=== PATIENT | female | born 1955 | race Caucasian/White ===

== ENCOUNTER 2020-08-02 17:06 | Inpatient (IN) ==
[~2020-08-02 17:06] MED LIST: *HR* Midazolam HCl 5 MG/5 ML VIAL IVP ONE; *HR* Propofol 200 MG/20 ML VIAL IVP ONE; *HR* Succinylcholine 200 MG/10 ML VIAL IVP ONE
[2020-08-02] MEDS ORDERED: Racepinephrine Neb 0.5 ML VIAL IH ONE (17:20)
[2020-08-02] MEDS ORDERED: methylPREDNISolone 125 MG/2 ML VIAL ONE (17:26)
[2020-08-02] MEDS ORDERED: Ketamine *HR* 500 MG/10 ML MDV ONE (17:29)
[2020-08-02] MEDS ORDERED: Oxymetazoline Nasal SPRAY BOTTLE NS STA (17:31)
[2020-08-02] MEDS ORDERED: Ketamine *HR* 500 MG/10 ML MDV IVP ONE (17:35)
[2020-08-02 17:53] LABS: Basophils # 0.1 K/mcL (0.0-0.2); Eosinophils # 0.2 K/mcL (0.0-0.6); Eosinophils % 1.8 %; Hematocrit 42.2 % (35.3-44.9); Hemoglobin 14.2 g/dL (11.5-15.4); Immature Granulocytes % 0.2 % (0-4); Lymphocytes # 1.9 K/mcL (0.6-4.6); Mean Corpuscular HGB Conc 33.6 g/dL (31.6-35.5); Mean Corpuscular Hemoglobin 34.5 pg (28.0-33.3); Mean Corpuscular Volume 102.7 fL (83.0-100.0); Mean Platelet Volume 11.1 fL (9.4-12.4); Monocytes # 0.9 K/mcL (0.0-1.3); Monocytes % 9.2 %; Neutrophils # 6.3 K/mcL (1.6-8.9); Platelet Count 215 K/mcL (140-400); Red Blood Count 4.11 M/mcL (3.82-4.97); Red Cell Distribution Width 14.2 % (11.5-14.5); Segmented Neutrophils % 67.8 %; White Blood Count 9.2 K/mcL (4.3-11.1)
[2020-08-02] MEDS ORDERED: 0.9 % Sodium Chloride 1,000 ML IVC ONE ×2 (17:53→23:09)
[2020-08-02] MEDS ORDERED: 0.9 % Sodium Chloride 1,000 ML ONE ×2 (17:54→22:59)
[2020-08-02] MEDS ORDERED: *HR* FentaNYL (PF) 1,000 MCG/20 ML VIAL ONE (17:57)
[2020-08-02 18:03] LABS: INR 1.1; Prothrombin Time 12.4 Seconds (9.4-12.1)
[2020-08-02 18:06] LABS: Activated Partial Thrombo Time 28.5 Seconds (26.0-36.0)
[2020-08-02 18:12] LABS: BUN/Creatinine Ratio 13 (6-26); Blood Urea Nitrogen 20 mg/dL (8-23); Calcium 9.3 mg/dL (8.6-10.3); Carbon Dioxide 27 mEq/L (23-29); Chloride 94 mEq/L (98-107); Glucose 121 mg/dL (70-105); Osmolality,Calculated 272 (280-300); Potassium 4.1 mEq/L (3.5-5.1); Sodium 129 mEq/L (136-145); eGFR For African Americans 40 (> 60); eGFR For Non-African Americans 33 (> 60)
[2020-08-02 18:13] LABS: Troponin I < 0.03 ng/mL (< 0.04)
[2020-08-02 18:18] LABS: ABG Base Excess -3 mEq/L (-2 to 3); ABG HCO3 26 mEq/L (21-27); ABG Oxygen Saturation 100 % (95-98); ABG PCO2 63 mmHg (35-45); ABG PH 7.23 pH Units (7.32-7.45); ABG PO2 272 mmHg (85-104); ABG TCO2 28 mEq/L (20-26); Blood Gas Modality ASSIST CONTROL; Blood Gas VT 400 cc
[2020-08-02] MEDS: FentaNYL (PF) 1,000 MCG/100 ML IV.SOLN IVC SCH ×2 (18:21→22:21)
[2020-08-02] MEDS ORDERED: *HR* Midazolam HCl 2 MG/2 ML VIAL IVP ONE (18:35)
[2020-08-02] MEDS ORDERED: Naloxone 0.4 MG/ML INJ IVP PRN (18:39)
[2020-08-02] MEDS ORDERED: Acetaminophen 650 MG RECTAL SUPP RC PRN (18:39)
[2020-08-02] MEDS ORDERED: Artificial Tears SOLN 15 ML BOTTLE BOTH EYES PRN (18:43)
[2020-08-02] MEDS: Midazolam HCl 50 MG/100 ML IV.SOLN IVC SCH (20:10)
[2020-08-02 21:07] LABS: ABG Base Excess -1 mEq/L (-2 to 3); ABG HCO3 27 mEq/L (21-27); ABG Oxygen Saturation 100 % (95-98); ABG PCO2 60 mmHg (35-45); ABG PH 7.27 pH Units (7.32-7.45); ABG PO2 193 mmHg (85-104); ABG TCO2 29 mEq/L (20-26); Blood Gas Modality ASSIST CONTROL; Blood Gas VT 500 cc
[2020-08-02] MEDS: Chlorhexidine Rinse 15 ML MOUTHWASH MM SCH (21:14)
[2020-08-02] MEDS: Artificial Tears SOLN 15 ML BOTTLE BOTH EYES SCH ×2 (21:14→23:08)
[2020-08-02] MEDS: Oxymetazoline Nasal SPRAY BOTTLE NS SCH (21:15)
[2020-08-02] MEDS: MethylPREDNISolone 40 MG/ML VIAL IVP SCH (23:01)
[2020-08-02] MEDS ORDERED: Magnesium Sulfate 1 GM/102 ML PIGGYBACK IVPB ONE (23:31)
[2020-08-03 04:18] LABS: ABG Base Excess -2 mEq/L (-2 to 3); ABG HCO3 24 mEq/L (21-27); ABG Oxygen Saturation 98 % (95-98); ABG PCO2 47 mmHg (35-45); ABG PH 7.32 pH Units (7.32-7.45); ABG PO2 116 mmHg (85-104); ABG TCO2 26 mEq/L (20-26); Blood Gas Modality ASSIST CONTROL; Blood Gas VT 450 cc
[2020-08-03] MEDS: Artificial Tears SOLN 15 ML BOTTLE BOTH EYES SCH ×6 (04:23→23:54)
[2020-08-03 05:55] LABS: Hematocrit 35.2 % (35.3-44.9); Hemoglobin 11.5 g/dL (11.5-15.4); Mean Corpuscular HGB Conc 32.7 g/dL (31.6-35.5); Mean Corpuscular Hemoglobin 33.3 pg (28.0-33.3); Platelet Count 181 K/mcL (140-400); Red Blood Count 3.45 M/mcL (3.82-4.97); Red Cell Distribution Width 14.2 % (11.5-14.5); White Blood Count 5.3 K/mcL (4.3-11.1)
[2020-08-03 05:59] LABS: VBG Ionized Calcium 1.21 mmol/L (1.15-1.35)
[2020-08-03] MEDS ORDERED: Famotidine 20 MG/2 ML VIAL IVP SCH (06:00)
[2020-08-03] MEDS: Oxymetazoline Nasal SPRAY BOTTLE NS SCH ×2 (06:14→17:12)
[2020-08-03 06:17] LABS: Phosphorous 2.8 mg/dL (2.7-4.5); Potassium 4.8 mEq/L (3.5-5.1)
[2020-08-03] MEDS: FentaNYL (PF) 1,000 MCG/100 ML IV.SOLN IVC SCH ×2 (06:48→13:35)
[2020-08-03] MEDS: MethylPREDNISolone 40 MG/ML VIAL IVP SCH ×3 (07:57→23:54)
[2020-08-03] MEDS: Chlorhexidine Rinse 15 ML MOUTHWASH MM SCH ×2 (08:13→20:10)
[2020-08-03] MEDS: Budesonide/Formoterol 160/4.5 1 PUFF INH IH SCH ×2 (11:25→20:03)
[2020-08-03] MEDS ORDERED: Ringers Solution, Lactated 500 ML IVC ONE (12:26)
[2020-08-03 12:37] LABS: Adenovirus Not Detected (Not Detect); Bordetella Pertussis Not Detected (Not Detect); Chlamydophila pneumoniae Not Detected (Not Detect); Coronavirus 229E Not Detected (Not Detect); Coronavirus HKU1 Not Detected (Not Detect); Coronavirus NL63 Not Detected (Not Detect); Coronavirus OC43 Not Detected (Not Detect); Human Metapneumovirus Not Detected (Not Detect); Human Rhinovirus/Enterovirus Not Detected (Not Detect); Influenza A Subtype 2009 H1 Not Detected (Not Detect); Influenza B Not Detected (Not Detect); Mycoplasma pneumoniae Not Detected (Not Detect); Parainfluenza Virus 1 Not Detected (Not Detect); Parainfluenza Virus 2 Not Detected (Not Detect); Parainfluenza Virus 3 Not Detected (Not Detect); Parainfluenza Virus 4 Not Detected (Not Detect); Respiratory Syncytial Virus Not Detected (Not Detect); SARS-CoV-2 Not Detected (Not Detect)
[2020-08-03] MEDS: *HR* Heparin 5,000 UNIT/ML VIAL SQ SCH ×2 (12:56→21:16)
[2020-08-03] MEDS: Midazolam HCl 50 MG/100 ML IV.SOLN IVC SCH ×2 (15:07→21:03)
[2020-08-03] MEDS: FentaNYL (PF) 2,500 MCG/50 ML IV.SOLN IVC SCH (19:15)
[2020-08-04] MEDS: Midazolam HCl 50 MG/100 ML IV.SOLN IVC SCH ×3 (02:44→18:38)
[2020-08-04] MEDS: FentaNYL (PF) 2,500 MCG/50 ML IV.SOLN IVC SCH ×2 (02:44→15:47)
[2020-08-04] MEDS: Artificial Tears SOLN 15 ML BOTTLE BOTH EYES SCH ×6 (03:28→23:54)
[2020-08-04 04:50] LABS: ABG Base Excess -4 mEq/L (-2 to 3); ABG HCO3 22 mEq/L (21-27); ABG Oxygen Saturation 91 % (95-98); ABG PCO2 44 mmHg (35-45); ABG PH 7.32 pH Units (7.32-7.45); ABG PO2 66 mmHg (85-104); ABG TCO2 24 mEq/L (20-26); Blood Gas Modality ASSIST CONTROL; Blood Gas VT 450 cc
[2020-08-04 05:29] LABS: Calcium 8.8 mg/dL (8.6-10.3); Potassium 5.2 mEq/L (3.5-5.1)
[2020-08-04] MEDS: *HR* Heparin 5,000 UNIT/ML VIAL SQ SCH ×3 (05:44→20:28)
[2020-08-04] MEDS: Oxymetazoline Nasal SPRAY BOTTLE NS SCH ×2 (05:44→17:20)
[2020-08-04 06:44] LABS: Basophils % 0.1 %; Hemoglobin 11.9 g/dL (11.5-15.4); Immature Granulocytes % 0.8 % (0-4); Lymphocytes # 0.7 K/mcL (0.6-4.6); Lymphocytes % 4.5 %; Mean Corpuscular HGB Conc 33.1 g/dL (31.6-35.5); Mean Corpuscular Hemoglobin 35.1 pg (28.0-33.3); Mean Corpuscular Volume 106.2 fL (83.0-100.0); Mean Platelet Volume 11.4 fL (9.4-12.4); Monocytes # 0.9 K/mcL (0.0-1.3); Monocytes % 5.6 %; Neutrophils # 13.8 K/mcL (1.6-8.9); Platelet Count 193 K/mcL (140-400); Red Blood Count 3.39 M/mcL (3.82-4.97); Red Cell Distribution Width 14.7 % (11.5-14.5); White Blood Count 15.5 K/mcL (4.3-11.1)
[2020-08-04] MEDS: Famotidine 20 MG/2 ML VIAL IVP SCH (07:37)
[2020-08-04] MEDS: Chlorhexidine Rinse 15 ML MOUTHWASH MM SCH ×2 (07:37→20:28)
[2020-08-04] MEDS: MethylPREDNISolone 40 MG/ML VIAL IVP SCH ×3 (07:38→23:55)
[2020-08-04] MEDS: Budesonide/Formoterol 160/4.5 1 PUFF INH IH SCH ×2 (07:42→21:33)
[2020-08-04] MEDS ORDERED: Furosemide 20 MG/2 ML VIAL IVP ONE (09:58)
[2020-08-04] MEDS ORDERED: D5% in Water 1,000 ML IVC PRN (12:18)
[2020-08-04] MEDS ORDERED: Dextrose Gel 15 GM/37.5 ML TUBE PO PRN ×2 (12:18)
[2020-08-04] MEDS ORDERED: *HR* Dextrose 50 % in Water (Vial) 50 ML VIAL IVP PRN (12:18)
[2020-08-04 15:00] LABS: Calcium 9.2 mg/dL (8.6-10.3); Potassium 5.3 mEq/L (3.5-5.1)
[2020-08-04] MEDS ORDERED: Albumin 25% 25gram/100mL 25 GM/100 ML IV.SOLN IVPB ONE ×2 (15:11→18:32)
[2020-08-04] MEDS ORDERED: Ringers Solution, Lactated 500 ML IVC ONE (15:25)
[2020-08-04] MEDS ORDERED: Ringers Solution, Lactated 1,000 ML ONE (15:30)
[2020-08-04] MEDS: Ringers Solution, Lactated 1,000 ML IVC SCH (15:37)
[2020-08-04] MEDS: Insulin LISPRO 300 UNITS/3 ML VIAL SUBQ SCH ×3 (15:53→23:55)
[2020-08-04] MEDS ORDERED: Perflutren Lipid Microsphere 1.3 ML in 0.9 % Sodium Chloride 8.7 ML IVP PRN (16:26)
[2020-08-04 17:32] LABS: Basophils % 0.1 %; Hematocrit 32.7 % (35.3-44.9); Hemoglobin 10.7 g/dL (11.5-15.4); Immature Granulocytes % 0.6 % (0-4); Lymphocytes # 0.5 K/mcL (0.6-4.6); Lymphocytes % 3.3 %; Mean Corpuscular HGB Conc 32.7 g/dL (31.6-35.5); Mean Corpuscular Hemoglobin 35.4 pg (28.0-33.3); Mean Corpuscular Volume 108.3 fL (83.0-100.0); Mean Platelet Volume 11.4 fL (9.4-12.4); Monocytes # 0.8 K/mcL (0.0-1.3); Monocytes % 5.3 %; Neutrophils # 14.1 K/mcL (1.6-8.9); Platelet Count 185 K/mcL (140-400); Red Blood Count 3.02 M/mcL (3.82-4.97); Red Cell Distribution Width 14.7 % (11.5-14.5); Segmented Neutrophils % 90.7 %; White Blood Count 15.6 K/mcL (4.3-11.1)
[2020-08-04 18:01] LABS: Albumin 3.6 g/dL (3.5-5.7); Albumin/Globulin Ratio 1.3 (1.1-2.2); Bilirubin,Total 0.2 mg/dL (0.3-1.0); Calcium 8.7 mg/dL (8.6-10.3); Globulin 2.8 g/dL (2.4-3.5); Potassium 5.5 mEq/L (3.5-5.1); Total Protein 6.4 g/dL (6.4-8.9)
[2020-08-04] MEDS: *HR* LORazepam 2 MG/ML VIAL IVP PRN (18:03)
[2020-08-04] MEDS ORDERED: Albumin 25% 25gram/100mL 25 GM/100 ML IV.SOLN ONE (18:33)
[2020-08-05] MEDS: Midazolam HCl 50 MG/100 ML IV.SOLN IVC SCH ×2 (00:35→06:44)
[2020-08-05 03:34] LABS: Basophils % 0.1 %; Hematocrit 34.7 % (35.3-44.9); Hemoglobin 11.1 g/dL (11.5-15.4); Immature Granulocytes % 1.4 % (0-4); Lymphocytes # 0.4 K/mcL (0.6-4.6); Lymphocytes % 1.8 %; Mean Corpuscular Volume 106.4 fL (83.0-100.0); Mean Platelet Volume 11.7 fL (9.4-12.4); Monocytes # 1.7 K/mcL (0.0-1.3); Monocytes % 7.6 %; Neutrophils # 20.3 K/mcL (1.6-8.9); Platelet Count 200 K/mcL (140-400); Red Blood Count 3.26 M/mcL (3.82-4.97); Red Cell Distribution Width 14.8 % (11.5-14.5); Segmented Neutrophils % 89.1 %; White Blood Count 22.8 K/mcL (4.3-11.1)
[2020-08-05 03:41] LABS: Prothrombin Time 11.8 Seconds (9.4-12.1)
[2020-08-05 03:44] LABS: Activated Partial Thrombo Time 28.2 Seconds (26.0-36.0)
[2020-08-05 03:51] LABS: Albumin 3.1 g/dL (3.5-5.7); Albumin/Globulin Ratio 1.4 (1.1-2.2); Bilirubin,Indirect 0.2 mg/dL (0.0-1.0); Bilirubin,Total 0.2 mg/dL (0.3-1.0); Calcium 6.7 mg/dL (8.6-10.3); Globulin 2.2 g/dL (2.4-3.5); Magnesium 1.7 mg/dL (1.6-2.6); Phosphorous 5.1 mg/dL (2.7-4.5); Potassium 4.6 mEq/L (3.5-5.1); Total Protein 5.3 g/dL (6.4-8.9)
[2020-08-05] MEDS: Artificial Tears SOLN 15 ML BOTTLE BOTH EYES SCH ×6 (04:35→23:57)
[2020-08-05] MEDS: FentaNYL (PF) 2,500 MCG/50 ML IV.SOLN IVC SCH (04:35)
[2020-08-05] MEDS: Oxymetazoline Nasal SPRAY BOTTLE NS SCH (04:35)
[2020-08-05] MEDS: *HR* Heparin 5,000 UNIT/ML VIAL SQ SCH ×3 (04:35→21:01)
[2020-08-05] MEDS: Insulin LISPRO 300 UNITS/3 ML VIAL SUBQ SCH ×6 (04:37→23:58)
[2020-08-05 05:04] LABS: ABG Base Excess -5 mEq/L (-2 to 3); ABG HCO3 25 mEq/L (21-27); ABG Oxygen Saturation 90 % (95-98); ABG PCO2 68 mmHg (35-45); ABG PH 7.18 pH Units (7.32-7.45); ABG PO2 76 mmHg (85-104); ABG TCO2 27 mEq/L (20-26); Blood Gas VT 450 cc
[2020-08-05] MEDS ORDERED: Calcium Gluconate 1gm/50mL 1 GM/50 ML BAG IVPB ONE (05:39)
[2020-08-05 06:05] LABS: ABG Base Excess -5 mEq/L (-2 to 3); ABG HCO3 23 mEq/L (21-27); ABG Oxygen Saturation 92 % (95-98); ABG PCO2 54 mmHg (35-45); ABG PH 7.24 pH Units (7.32-7.45); ABG PO2 75 mmHg (85-104); ABG TCO2 25 mEq/L (20-26); Blood Gas VT 500 cc
[2020-08-05] MEDS: Ringers Solution, Lactated 1,000 ML IVC SCH ×2 (06:45→20:27)
[2020-08-05] MEDS: Budesonide/Formoterol 160/4.5 1 PUFF INH IH SCH ×2 (07:55→19:55)
[2020-08-05] MEDS: MethylPREDNISolone 40 MG/ML VIAL IVP SCH (08:25)
[2020-08-05] MEDS: Famotidine 20 MG/2 ML VIAL IVP SCH (08:25)
[2020-08-05] MEDS: Chlorhexidine Rinse 15 ML MOUTHWASH MM SCH ×2 (08:26→21:02)
[2020-08-05] MEDS: Ipratropium/Albuterol Neb 3 ML IH SCH ×4 (11:52→23:18)
[2020-08-05] MEDS ORDERED: Dexmedetomidine HCl 400 MCG/100 ML MLS IVC SCH (21:15)
[2020-08-06] MEDS: Dexmedetomidine HCl 400 MCG/100 ML MLS IVC SCH ×7 (01:45→23:42)
[2020-08-06] MEDS: Ipratropium/Albuterol Neb 3 ML IH SCH ×6 (03:56→23:21)
[2020-08-06] MEDS: Artificial Tears SOLN 15 ML BOTTLE BOTH EYES SCH ×6 (04:57→23:17)
[2020-08-06] MEDS: Insulin LISPRO 300 UNITS/3 ML VIAL SUBQ SCH ×6 (04:57→23:27)
[2020-08-06] MEDS: *HR* Heparin 5,000 UNIT/ML VIAL SQ SCH ×3 (05:42→21:19)
[2020-08-06] MEDS: *HR* LORazepam 2 MG/ML VIAL IVP PRN (05:42)
[2020-08-06 06:07] LABS: VBG Ionized Calcium 1.24 mmol/L (1.15-1.35)
[2020-08-06 06:07] LABS: Basophils % 0.1 %; Hematocrit 35.2 % (35.3-44.9); Hemoglobin 11.3 g/dL (11.5-15.4); Immature Granulocytes % 0.8 % (0-4); Lymphocytes # 0.8 K/mcL (0.6-4.6); Lymphocytes % 5.7 %; Mean Corpuscular HGB Conc 32.1 g/dL (31.6-35.5); Mean Corpuscular Hemoglobin 33.7 pg (28.0-33.3); Mean Corpuscular Volume 105.1 fL (83.0-100.0); Monocytes # 1.1 K/mcL (0.0-1.3); Monocytes % 7.4 %; Neutrophils # 12.2 K/mcL (1.6-8.9); Platelet Count 179 K/mcL (140-400); Red Blood Count 3.35 M/mcL (3.82-4.97); Red Cell Distribution Width 14.7 % (11.5-14.5); White Blood Count 14.2 K/mcL (4.3-11.1)
[2020-08-06 06:26] LABS: Calcium 9.6 mg/dL (8.6-10.3); Magnesium 2.4 mg/dL (1.6-2.6); Phosphorous 3.2 mg/dL (2.7-4.5); Potassium 4.6 mEq/L (3.5-5.1)
[2020-08-06] MEDS: Budesonide/Formoterol 160/4.5 1 PUFF INH IH SCH ×2 (07:28→20:06)
[2020-08-06] MEDS: Famotidine 20 MG/2 ML VIAL IVP SCH (08:33)
[2020-08-06] MEDS: Chlorhexidine Rinse 15 ML MOUTHWASH MM SCH ×2 (08:35→19:56)
[2020-08-06] MEDS: Ringers Solution, Lactated 1,000 ML IVC SCH (09:17)
[2020-08-06] MEDS ORDERED: Ipratropium/Albuterol Neb 3 ML IH PRN (14:45)
[2020-08-06] MEDS ORDERED: Furosemide 40 MG/4 ML VIAL IVP ONE (14:46)
[2020-08-07] MEDS: Dexmedetomidine HCl 400 MCG/100 ML MLS IVC SCH ×4 (03:08→16:49)
[2020-08-07] MEDS: Ipratropium/Albuterol Neb 3 ML IH SCH ×6 (04:08→22:47)
[2020-08-07 04:40] LABS: Basophils % 0.1 %; Hematocrit 37.7 % (35.3-44.9); Hemoglobin 12.5 g/dL (11.5-15.4); Immature Granulocytes % 0.5 % (0-4); Lymphocytes # 0.8 K/mcL (0.6-4.6); Lymphocytes % 6.7 %; Mean Corpuscular HGB Conc 33.2 g/dL (31.6-35.5); Mean Corpuscular Hemoglobin 34.1 pg (28.0-33.3); Mean Corpuscular Volume 102.7 fL (83.0-100.0); Mean Platelet Volume 11.3 fL (9.4-12.4); Monocytes # 1.2 K/mcL (0.0-1.3); Monocytes % 9.8 %; Platelet Count 198 K/mcL (140-400); Red Blood Count 3.67 M/mcL (3.82-4.97); Red Cell Distribution Width 14.1 % (11.5-14.5); Segmented Neutrophils % 82.9 %; White Blood Count 12.1 K/mcL (4.3-11.1)
[2020-08-07 04:51] LABS: Calcium 9.8 mg/dL (8.6-10.3); Potassium 4.7 mEq/L (3.5-5.1)
[2020-08-07] MEDS: Insulin LISPRO 300 UNITS/3 ML VIAL SUBQ SCH ×4 (04:51→16:02)
[2020-08-07] MEDS: *HR* Heparin 5,000 UNIT/ML VIAL SQ SCH ×3 (04:52→20:34)
[2020-08-07] MEDS: Budesonide/Formoterol 160/4.5 1 PUFF INH IH SCH ×2 (07:29→20:01)
[2020-08-07] MEDS: Chlorhexidine Rinse 15 ML MOUTHWASH MM SCH ×2 (07:44→20:34)
[2020-08-07] MEDS: Famotidine 20 MG/2 ML VIAL IVP SCH (07:45)
[2020-08-07] MEDS ORDERED: Furosemide 20 MG/2 ML VIAL IVP ONE (12:34)
[2020-08-08] MEDS: Insulin LISPRO 300 UNITS/3 ML VIAL SUBQ SCH ×5 (00:03→17:10)
[2020-08-08] MEDS: Ipratropium/Albuterol Neb 3 ML IH SCH ×5 (04:07→19:36)
[2020-08-08] MEDS: Dexmedetomidine HCl 400 MCG/100 ML MLS IVC SCH ×2 (06:35→19:06)
[2020-08-08] MEDS: *HR* Heparin 5,000 UNIT/ML VIAL SQ SCH ×3 (06:37→22:17)
[2020-08-08] MEDS: Budesonide/Formoterol 160/4.5 1 PUFF INH IH SCH ×2 (07:45→19:37)
[2020-08-08] MEDS: Famotidine 20 MG/2 ML VIAL IVP SCH (09:37)
[2020-08-08] MEDS: Chlorhexidine Rinse 15 ML MOUTHWASH MM SCH ×2 (09:38→22:17)
[2020-08-08] MEDS: QUEtiapine Fumarate 25 MG TABLET PO SCH ×2 (11:25→22:17)
[2020-08-08] MEDS ORDERED: Furosemide 20 MG/2 ML VIAL IVP ONE (15:22)
[2020-08-08] MEDS: MethylPREDNISolone 40 MG/ML VIAL IVP SCH (15:57)
[2020-08-08] MEDS: *HR* LORazepam 2 MG/ML VIAL IVP PRN (22:12)
[2020-08-09] MEDS: MethylPREDNISolone 40 MG/ML VIAL IVP SCH ×3 (00:02→16:46)
[2020-08-09] MEDS: Insulin LISPRO 300 UNITS/3 ML VIAL SUBQ SCH ×5 (00:02→23:59)
[2020-08-09] MEDS: Ipratropium/Albuterol Neb 3 ML IH SCH ×7 (00:06→23:41)
[2020-08-09 01:32] LABS: Basophils % 0.2 %; Hematocrit 41.8 % (35.3-44.9); Immature Granulocytes % 1.4 % (0-4); Lymphocytes # 0.7 K/mcL (0.6-4.6); Lymphocytes % 6.6 %; Mean Corpuscular HGB Conc 33.7 g/dL (31.6-35.5); Mean Corpuscular Hemoglobin 34.3 pg (28.0-33.3); Mean Corpuscular Volume 101.7 fL (83.0-100.0); Mean Platelet Volume 10.7 fL (9.4-12.4); Monocytes # 0.4 K/mcL (0.0-1.3); Monocytes % 4.2 %; Platelet Count 196 K/mcL (140-400); Red Blood Count 4.11 M/mcL (3.82-4.97); Red Cell Distribution Width 14.5 % (11.5-14.5); Segmented Neutrophils % 87.6 %; White Blood Count 10.3 K/mcL (4.3-11.1)
[2020-08-09 01:36] LABS: Hemoglobin 14.1 g/dL (11.5-15.4)
[2020-08-09 01:47] LABS: Potassium 4.2 mEq/L (3.5-5.1)
[2020-08-09] MEDS: *HR* Heparin 5,000 UNIT/ML VIAL SQ SCH ×3 (05:48→20:46)
[2020-08-09] MEDS: Dexmedetomidine HCl 400 MCG/100 ML MLS IVC SCH ×2 (05:54→16:53)
[2020-08-09] MEDS: Famotidine 20 MG/2 ML VIAL IVP SCH (07:28)
[2020-08-09] MEDS: QUEtiapine Fumarate 25 MG TABLET PO SCH ×2 (07:36→20:47)
[2020-08-09] MEDS: Budesonide/Formoterol 160/4.5 1 PUFF INH IH SCH ×2 (07:37→20:10)
[2020-08-09] MEDS: Chlorhexidine Rinse 15 ML MOUTHWASH MM SCH (07:50)
[2020-08-09] MEDS: 0.9 % Sodium Chloride 500 ML IVC SCH (11:10)
[2020-08-09] MEDS: *HR* LORazepam 2 MG/ML VIAL IVP PRN (20:46)
[2020-08-09 22:45] LABS: Folate 5.5 ng/mL (3.0-16.0)
[2020-08-09 22:49] LABS: Troponin I 0.08 ng/mL (< 0.04)
[2020-08-09 23:20] LABS: ABG Base Excess -1 mEq/L (-2 to 3); ABG HCO3 22 mEq/L (21-27); ABG Oxygen Saturation 96 % (95-98); ABG PCO2 31 mmHg (35-45); ABG PH 7.47 pH Units (7.32-7.45); ABG PO2 74 mmHg (85-104); ABG TCO2 23 mEq/L (20-26)
[2020-08-09 23:35] LABS: Bacteria,Urine Few per hpf (None-Few); Bilirubin,Urine Negative (Negative); Blood,Urine Moderate (Negative); Budding Yeast,Urine Few per hpf (None Seen); Calcium Oxalate Crystals,Urine Present; Clarity,Urine Clear (Clear); Color,Urine Light-Yellow (Yellow); Glucose,Urine (UA) Normal (Normal); Ketones,Urine 10 mg/dL (Negative); Leukocyte Esterase,Urine Negative (Negative); Mucus,Urine Few per lpf (None-Few); Nitrite,Urine Negative (Negative); Protein,Urine 100 mg/dL (Neg-Trace); RBC,Urine 15-30 per hpf (0-3); Specific Gravity,Urine 1.019 (1.010-1.025); Urobilinogen,Urine Normal (Normal)
[2020-08-10] MEDS: MethylPREDNISolone 40 MG/ML VIAL IVP SCH (00:01)
[2020-08-10 01:18] LABS: Basophils # 0.1 K/mcL (0.0-0.2); Basophils % 0.3 %; Hematocrit 42.8 % (35.3-44.9); Hemoglobin 14.4 g/dL (11.5-15.4); Immature Granulocytes % 1.9 % (0-4); Lymphocytes # 1.2 K/mcL (0.6-4.6); Lymphocytes % 7.5 %; Mean Corpuscular HGB Conc 33.6 g/dL (31.6-35.5); Mean Corpuscular Hemoglobin 33.6 pg (28.0-33.3); Mean Platelet Volume 11.3 fL (9.4-12.4); Monocytes % 6.4 %; Neutrophils # 13.1 K/mcL (1.6-8.9); Platelet Count 187 K/mcL (140-400); Red Blood Count 4.28 M/mcL (3.82-4.97); Red Cell Distribution Width 14.8 % (11.5-14.5); Segmented Neutrophils % 83.9 %; White Blood Count 15.6 K/mcL (4.3-11.1)
[2020-08-10 01:38] LABS: Albumin 3.7 g/dL (3.5-5.7); Bilirubin,Direct 0.2 mg/dL (0.0-0.2); Bilirubin,Indirect 0.5 mg/dL (0.0-1.0); Bilirubin,Total 0.7 mg/dL (0.3-1.0); Calcium 9.9 mg/dL (8.6-10.3); Globulin 3.7 g/dL (2.4-3.5); Magnesium 2.7 mg/dL (1.6-2.6); Potassium 4.3 mEq/L (3.5-5.1); Total Protein 7.4 g/dL (6.4-8.9)
[2020-08-10] MEDS: Ipratropium/Albuterol Neb 3 ML IH SCH ×5 (03:49→19:50)
[2020-08-10] MEDS: 0.9 % Sodium Chloride 500 ML IVC SCH ×2 (04:27→09:10)
[2020-08-10] MEDS: *HR* Heparin 5,000 UNIT/ML VIAL SQ SCH ×3 (05:38→19:55)
[2020-08-10] MEDS: Insulin LISPRO 300 UNITS/3 ML VIAL SUBQ SCH ×3 (05:42→17:41)
[2020-08-10] MEDS: *HR* LORazepam 2 MG/ML VIAL IVP PRN ×2 (06:00→13:12)
[2020-08-10] MEDS: Budesonide/Formoterol 160/4.5 1 PUFF INH IH SCH ×2 (07:42→19:50)
[2020-08-10] MEDS: Cyanocobalamin (B-12) 1,000 MCG TABLET PO SCH (09:09)
[2020-08-10] MEDS: cefTRIAXone 1,000 MG in Water for inj. (sterile) 10 ML IVP SCH (09:09)
[2020-08-10] MEDS: QUEtiapine Fumarate 25 MG TABLET PO SCH ×2 (09:09→19:55)
[2020-08-10] MEDS: Famotidine 20 MG/2 ML VIAL IVP SCH (09:09)
[2020-08-10] MEDS ORDERED: polyethylene glycoL 3350 17 GM POWD.PACK PO PRN (16:16)
[2020-08-11] MEDS: Ipratropium/Albuterol Neb 3 ML IH SCH ×6 (00:16→22:28)
[2020-08-11] MEDS: Insulin LISPRO 300 UNITS/3 ML VIAL SUBQ SCH ×4 (01:10→16:43)
[2020-08-11 03:53] LABS: Basophils # 0.1 K/mcL (0.0-0.2); Basophils % 0.4 %; Hematocrit 43.4 % (35.3-44.9); Hemoglobin 13.8 g/dL (11.5-15.4); Immature Granulocytes % 2.4 % (0-4); Lymphocytes # 2.7 K/mcL (0.6-4.6); Lymphocytes % 16.2 %; Mean Corpuscular HGB Conc 31.8 g/dL (31.6-35.5); Mean Corpuscular Hemoglobin 33.4 pg (28.0-33.3); Mean Corpuscular Volume 105.1 fL (83.0-100.0); Mean Platelet Volume 11.3 fL (9.4-12.4); Monocytes # 2.2 K/mcL (0.0-1.3); Monocytes % 13.1 %; Neutrophils # 11.2 K/mcL (1.6-8.9); Platelet Count 172 K/mcL (140-400); Red Blood Count 4.13 M/mcL (3.82-4.97); Red Cell Distribution Width 15.2 % (11.5-14.5); Segmented Neutrophils % 67.9 %; White Blood Count 16.5 K/mcL (4.3-11.1)
[2020-08-11 04:16] LABS: Calcium 9.5 mg/dL (8.6-10.3); Potassium 3.7 mEq/L (3.5-5.1)
[2020-08-11] MEDS: *HR* Heparin 5,000 UNIT/ML VIAL SQ SCH ×3 (05:37→21:04)
[2020-08-11] MEDS: Budesonide/Formoterol 160/4.5 1 PUFF INH IH SCH ×2 (07:13→22:28)
[2020-08-11] MEDS: cefTRIAXone 1,000 MG in Water for inj. (sterile) 10 ML IVP SCH (08:36)
[2020-08-11] MEDS: Aspirin 81 MG TAB.CHEW PO SCH (08:37)
[2020-08-11] MEDS: QUEtiapine Fumarate 25 MG TABLET PO SCH ×3 (08:37→21:04)
[2020-08-11] MEDS: Cyanocobalamin (B-12) 1,000 MCG TABLET PO SCH (08:37)
[2020-08-11] MEDS: Famotidine 20 MG/2 ML VIAL IVP SCH (08:37)
[2020-08-11] MEDS ORDERED: Cyanocobalamin (B-12) 1,000 MCG/ML VIAL IM ONE (09:10)
[2020-08-11] MEDS: Acetylcysteine 10% 2 ML INHSOL IH SCH ×3 (14:55→22:28)
[2020-08-11] MEDS: MethylPREDNISolone 40 MG/ML VIAL IVP SCH (15:49)
[2020-08-11] MEDS: Loratadine 10 MG TABLET PO SCH (16:47)
[2020-08-11] MEDS: ALPRAZolam 1 MG TABLET PO PRN (21:03)
[2020-08-11] MEDS: Venlafaxine XR (24 HR) 75 MG CAP.ER.24H PO SCH (21:03)
[2020-08-11 23:48] LABS: ABG Base Excess 0 mEq/L (-2 to 3); ABG HCO3 26 mEq/L (21-27); ABG Oxygen Saturation 96 % (95-98); ABG PCO2 45 mmHg (35-45); ABG PH 7.37 pH Units (7.32-7.45); ABG PO2 83 mmHg (85-104); ABG TCO2 27 mEq/L (20-26); Blood Gas Modality 2L
[2020-08-12] MEDS: Ipratropium/Albuterol Neb 3 ML IH SCH ×4 (03:26→22:25)
[2020-08-12] MEDS: *HR* Heparin 5,000 UNIT/ML VIAL SQ SCH ×3 (06:28→19:48)
[2020-08-12 07:56] LABS: Basophils % 0.2 %; Eosinophils % 0.3 %; Hematocrit 42.6 % (35.3-44.9); Hemoglobin 13.5 g/dL (11.5-15.4); Immature Granulocytes % 1.5 % (0-4); Lymphocytes # 2.3 K/mcL (0.6-4.6); Lymphocytes % 16.6 %; Mean Corpuscular HGB Conc 31.7 g/dL (31.6-35.5); Mean Corpuscular Hemoglobin 34.1 pg (28.0-33.3); Mean Corpuscular Volume 107.6 fL (83.0-100.0); Mean Platelet Volume 11.7 fL (9.4-12.4); Monocytes # 1.3 K/mcL (0.0-1.3); Monocytes % 9.5 %; Neutrophils # 10.1 K/mcL (1.6-8.9); Platelet Count 136 K/mcL (140-400); Red Blood Count 3.96 M/mcL (3.82-4.97); Red Cell Distribution Width 14.9 % (11.5-14.5); Segmented Neutrophils % 71.9 %; White Blood Count 14.1 K/mcL (4.3-11.1)
[2020-08-12 08:13] LABS: Calcium 9.2 mg/dL (8.6-10.3); Potassium 4.3 mEq/L (3.5-5.1)
[2020-08-12] MEDS: Venlafaxine XR (24 HR) 75 MG CAP.ER.24H PO SCH (08:36)
[2020-08-12] MEDS: QUEtiapine Fumarate 25 MG TABLET PO SCH ×2 (08:36→19:47)
[2020-08-12] MEDS: Insulin LISPRO 300 UNITS/3 ML VIAL SUBQ SCH ×3 (08:36→16:31)
[2020-08-12] MEDS: Loratadine 10 MG TABLET PO SCH (08:37)
[2020-08-12] MEDS: Famotidine 20 MG TABLET PO SCH (08:37)
[2020-08-12] MEDS: cefTRIAXone 1,000 MG in Water for inj. (sterile) 10 ML IVP SCH (08:37)
[2020-08-12] MEDS: Aspirin 81 MG TAB.CHEW PO SCH (08:37)
[2020-08-12] MEDS: Cyanocobalamin (B-12) 1,000 MCG TABLET PO SCH (08:37)
[2020-08-12] MEDS: Budesonide/Formoterol 160/4.5 1 PUFF INH IH SCH ×2 (10:02→22:25)
[2020-08-12] MEDS: Acetylcysteine 10% 2 ML INHSOL IH SCH ×3 (10:02→22:25)
[2020-08-12] MEDS: Ampicillin 1,000 MG in 0.9 % Sodium Chloride Mini Bag 100 ML IVPB SCH ×2 (12:07→19:46)
[2020-08-12 13:31] LABS: ABG Base Excess 0 mEq/L (-2 to 3); ABG HCO3 25 mEq/L (21-27); ABG Oxygen Saturation 91 % (95-98); ABG PCO2 44 mmHg (35-45); ABG PH 7.37 pH Units (7.32-7.45); ABG PO2 64 mmHg (85-104); ABG TCO2 27 mEq/L (20-26)
[2020-08-12] MEDS ORDERED: *HR* LORazepam 1 MG TABLET PO PRN (13:33)
[2020-08-12] MEDS ORDERED: *HR* LORazepam 2 MG/ML VIAL IVP PRN (15:23)
[2020-08-12] MEDS ORDERED: Furosemide 20 MG/2 ML VIAL IVP ONE (16:15)
[2020-08-12] MEDS: 0.9 % Sodium Chloride 500 ML IVC SCH (22:35)
[2020-08-13] MEDS: Ampicillin 1,000 MG in 0.9 % Sodium Chloride Mini Bag 100 ML IVPB SCH (03:28)
[2020-08-13] MEDS: Ipratropium/Albuterol Neb 3 ML IH SCH ×4 (04:00→22:17)
[2020-08-13 04:55] LABS: Basophils % 0.2 %; Eosinophils % 0.1 %; Immature Granulocytes % 1.1 % (0-4); Red Cell Distribution Width 14.9 % (11.5-14.5); Segmented Neutrophils % 90.6 %
[2020-08-13 04:57] LABS: Basophils # 0.1 K/mcL (0.0-0.2); Hematocrit 43.7 % (35.3-44.9); Hemoglobin 13.9 g/dL (11.5-15.4); Lymphocytes # 1.4 K/mcL (0.6-4.6); Lymphocytes % 4.5 %; Mean Corpuscular HGB Conc 31.8 g/dL (31.6-35.5); Mean Corpuscular Hemoglobin 34.2 pg (28.0-33.3); Mean Corpuscular Volume 107.4 fL (83.0-100.0); Mean Platelet Volume 11.7 fL (9.4-12.4); Monocytes # 1.1 K/mcL (0.0-1.3); Monocytes % 3.5 %; Platelet Count 136 K/mcL (140-400); Red Blood Count 4.07 M/mcL (3.82-4.97)
[2020-08-13 04:59] LABS: Neutrophils # 27.8 K/mcL (1.6-8.9)
[2020-08-13 05:00] LABS: White Blood Count 30.7 K/mcL (4.3-11.1)
[2020-08-13 05:07] LABS: Calcium 9.3 mg/dL (8.6-10.3); Potassium 4.6 mEq/L (3.5-5.1)
[2020-08-13] MEDS: *HR* Heparin 5,000 UNIT/ML VIAL SQ SCH ×3 (05:26→21:13)
[2020-08-13] MEDS: Insulin LISPRO 300 UNITS/3 ML VIAL SUBQ SCH ×3 (07:05→15:54)
[2020-08-13] MEDS: Cyanocobalamin (B-12) 1,000 MCG TABLET PO SCH (08:18)
[2020-08-13] MEDS: Venlafaxine XR (24 HR) 75 MG CAP.ER.24H PO SCH (08:18)
[2020-08-13] MEDS: Loratadine 10 MG TABLET PO SCH (08:18)
[2020-08-13] MEDS: QUEtiapine Fumarate 25 MG TABLET PO SCH ×2 (08:18→21:13)
[2020-08-13] MEDS: Famotidine 20 MG TABLET PO SCH (08:18)
[2020-08-13] MEDS: Aspirin 81 MG TAB.CHEW PO SCH (08:18)
[2020-08-13] MEDS: Piperacillin/Tazobactam 3.375 GM in 0.9 % Sodium Chloride Mini Bag 100 ML IVPB SCH ×3 (08:19→23:21)
[2020-08-13] MEDS: Vancomycin 1,750 MG/517.5 ML IV.SOLN IVPB SCH (08:29)
[2020-08-13] MEDS: Acetylcysteine 10% 2 ML INHSOL IH SCH ×3 (10:54→22:17)
[2020-08-13] MEDS: Budesonide/Formoterol 160/4.5 1 PUFF INH IH SCH ×2 (10:54→22:17)
[2020-08-13] MEDS ORDERED: methylPREDNISolone 125 MG/2 ML VIAL IVP ONE (15:44)
[2020-08-13] MEDS: methylPREDNISolone 125 MG/2 ML VIAL IVP SCH (23:21)
[2020-08-14] MEDS: Ipratropium/Albuterol Neb 3 ML IH SCH ×4 (03:40→21:45)
[2020-08-14] MEDS: *HR* Heparin 5,000 UNIT/ML VIAL SQ SCH ×3 (05:39→20:35)
[2020-08-14 06:38] LABS: Basophils % 0.2 %; Hematocrit 38.1 % (35.3-44.9); Immature Granulocytes % 1.2 % (0-4); Lymphocytes # 0.9 K/mcL (0.6-4.6); Lymphocytes % 4.4 %; Mean Corpuscular HGB Conc 31.8 g/dL (31.6-35.5); Mean Corpuscular Hemoglobin 33.7 pg (28.0-33.3); Mean Corpuscular Volume 106.1 fL (83.0-100.0); Mean Platelet Volume 11.9 fL (9.4-12.4); Monocytes # 0.2 K/mcL (0.0-1.3); Monocytes % 0.8 %; Platelet Count 128 K/mcL (140-400); Red Blood Count 3.59 M/mcL (3.82-4.97); Red Cell Distribution Width 14.7 % (11.5-14.5); Segmented Neutrophils % 93.4 %; White Blood Count 19.3 K/mcL (4.3-11.1)
[2020-08-14 06:40] LABS: Hemoglobin 12.1 g/dL (11.5-15.4)
[2020-08-14 07:00] LABS: Calcium 9.2 mg/dL (8.6-10.3); Potassium 4.1 mEq/L (3.5-5.1)
[2020-08-14] MEDS: QUEtiapine Fumarate 25 MG TABLET PO SCH ×2 (08:49→20:35)
[2020-08-14] MEDS: Venlafaxine XR (24 HR) 75 MG CAP.ER.24H PO SCH (08:49)
[2020-08-14] MEDS: Cyanocobalamin (B-12) 1,000 MCG TABLET PO SCH (08:50)
[2020-08-14] MEDS: Loratadine 10 MG TABLET PO SCH (08:50)
[2020-08-14] MEDS: Famotidine 20 MG TABLET PO SCH (08:50)
[2020-08-14] MEDS: Insulin LISPRO 300 UNITS/3 ML VIAL SUBQ SCH ×3 (08:51→16:24)
[2020-08-14] MEDS: methylPREDNISolone 125 MG/2 ML VIAL IVP SCH ×3 (08:51→23:52)
[2020-08-14] MEDS: Aspirin 81 MG TAB.CHEW PO SCH (08:51)
[2020-08-14] MEDS: Piperacillin/Tazobactam 3.375 GM in 0.9 % Sodium Chloride Mini Bag 100 ML IVPB SCH ×3 (08:52→23:53)
[2020-08-14] MEDS: Vancomycin 1,750 MG/517.5 ML IV.SOLN IVPB SCH (08:52)
[2020-08-14] MEDS: Budesonide/Formoterol 160/4.5 1 PUFF INH IH SCH ×2 (10:22→21:45)
[2020-08-14] MEDS: Acetylcysteine 10% 2 ML INHSOL IH SCH ×3 (10:22→21:47)
[2020-08-14] MEDS ORDERED: 0.9 % Sodium Chloride 1,000 ML IVC SCH (14:45)
[2020-08-14] MEDS ORDERED: E-Z-HD (BARIUM SULF) SUSPENSION PO ONE (15:50)
[2020-08-14] MEDS ORDERED: E-Z-PAQUE (BARIUM SULF) SUSP 1 BOTTLE PO ONE (15:50)
[2020-08-15 03:57] LABS: Bilirubin,Urine Negative (Negative); Blood,Urine Negative (Negative); Clarity,Urine Clear (Clear); Color,Urine Light-Yellow (Yellow); Glucose,Urine (UA) Normal (Normal); Ketones,Urine Negative (Negative); Leukocyte Esterase,Urine Negative (Negative); Nitrite,Urine Negative (Negative); PH,Urine 5.5 pH Units (5.0-8.0); Protein,Urine Trace mg/dL (Neg-Trace); Specific Gravity,Urine 1.021 (1.010-1.025); Urobilinogen,Urine Normal (Normal)
[2020-08-15 04:08] LABS: Protein/Creatinine Ratio,Urine 0.49 mg/mg (0.00-0.20); Sodium, Urine 55.8 mEq/L
[2020-08-15] MEDS: Ipratropium/Albuterol Neb 3 ML IH SCH ×4 (04:18→22:37)
[2020-08-15] MEDS: *HR* Heparin 5,000 UNIT/ML VIAL SQ SCH ×3 (05:22→21:28)
[2020-08-15 05:30] LABS: Basophils % 0.1 %; Hematocrit 37.8 % (35.3-44.9); Hemoglobin 12.3 g/dL (11.5-15.4); Immature Granulocytes % 0.9 % (0-4); Lymphocytes # 0.8 K/mcL (0.6-4.6); Lymphocytes % 4.3 %; Mean Corpuscular HGB Conc 32.5 g/dL (31.6-35.5); Mean Corpuscular Hemoglobin 33.9 pg (28.0-33.3); Mean Corpuscular Volume 104.1 fL (83.0-100.0); Mean Platelet Volume 11.9 fL (9.4-12.4); Monocytes # 0.6 K/mcL (0.0-1.3); Platelet Count 156 K/mcL (140-400); Red Blood Count 3.63 M/mcL (3.82-4.97); Red Cell Distribution Width 14.4 % (11.5-14.5); Segmented Neutrophils % 91.7 %; White Blood Count 18.5 K/mcL (4.3-11.1)
[2020-08-15 05:48] LABS: Uric Acid 9.8 mg/dL (2.3-7.6)
[2020-08-15 05:51] LABS: Calcium 8.8 mg/dL (8.6-10.3); Potassium 3.6 mEq/L (3.5-5.1)
[2020-08-15 06:32] LABS: Hepatitis B Surface Antigen Nonreactive (Nonreactive)
[2020-08-15 07:01] LABS: Hepatitis B Core IgM Nonreactive (Nonreactive); Hepatitis C Virus Antibody Nonreactive (Nonreactive)
[2020-08-15 07:03] LABS: Hepatitis A Antibody IgM Nonreactive (Nonreactive)
[2020-08-15] MEDS: Cyanocobalamin (B-12) 1,000 MCG TABLET PO SCH (08:02)
[2020-08-15] MEDS: QUEtiapine Fumarate 25 MG TABLET PO SCH ×2 (08:03→19:47)
[2020-08-15] MEDS: Venlafaxine XR (24 HR) 75 MG CAP.ER.24H PO SCH (08:03)
[2020-08-15] MEDS: Aspirin 81 MG TAB.CHEW PO SCH (08:03)
[2020-08-15] MEDS: Loratadine 10 MG TABLET PO SCH (08:03)
[2020-08-15] MEDS: Famotidine 20 MG TABLET PO SCH (08:03)
[2020-08-15] MEDS: Insulin LISPRO 300 UNITS/3 ML VIAL SUBQ SCH ×3 (08:04→17:11)
[2020-08-15] MEDS: methylPREDNISolone 125 MG/2 ML VIAL IVP SCH ×3 (08:04→17:43)
[2020-08-15] MEDS: Piperacillin/Tazobactam 3.375 GM in 0.9 % Sodium Chloride Mini Bag 100 ML IVPB SCH ×3 (08:04→23:55)
[2020-08-15] MEDS: Budesonide/Formoterol 160/4.5 1 PUFF INH IH SCH ×2 (09:57→22:37)
[2020-08-15] MEDS: Acetylcysteine 10% 2 ML INHSOL IH SCH ×3 (09:57→22:37)
[2020-08-16] MEDS: Ipratropium/Albuterol Neb 3 ML IH SCH ×4 (03:24→21:40)
[2020-08-16] MEDS: methylPREDNISolone 125 MG/2 ML VIAL IVP SCH (05:15)
[2020-08-16] MEDS: *HR* Heparin 5,000 UNIT/ML VIAL SQ SCH ×3 (05:15→21:26)
[2020-08-16 05:46] LABS: Basophils % 0.1 %; Hematocrit 37.8 % (35.3-44.9); Hemoglobin 12.3 g/dL (11.5-15.4); Lymphocytes # 0.7 K/mcL (0.6-4.6); Mean Corpuscular HGB Conc 32.5 g/dL (31.6-35.5); Mean Corpuscular Hemoglobin 33.5 pg (28.0-33.3); Monocytes # 0.8 K/mcL (0.0-1.3); Neutrophils # 10.1 K/mcL (1.6-8.9); Platelet Count 170 K/mcL (140-400); Red Blood Count 3.67 M/mcL (3.82-4.97); Red Cell Distribution Width 14.5 % (11.5-14.5); Segmented Neutrophils % 85.9 %; White Blood Count 11.8 K/mcL (4.3-11.1)
[2020-08-16 06:10] LABS: Calcium 9.7 mg/dL (8.6-10.3); Potassium 3.7 mEq/L (3.5-5.1)
[2020-08-16] MEDS: Insulin LISPRO 300 UNITS/3 ML VIAL SUBQ SCH ×3 (08:58→17:01)
[2020-08-16] MEDS: Piperacillin/Tazobactam 3.375 GM in 0.9 % Sodium Chloride Mini Bag 100 ML IVPB SCH ×2 (08:59→17:06)
[2020-08-16] MEDS: Aspirin 81 MG TAB.CHEW PO SCH (09:00)
[2020-08-16] MEDS: Loratadine 10 MG TABLET PO SCH (09:00)
[2020-08-16] MEDS: Venlafaxine XR (24 HR) 75 MG CAP.ER.24H PO SCH (09:01)
[2020-08-16] MEDS: Famotidine 20 MG TABLET PO SCH (09:01)
[2020-08-16] MEDS: QUEtiapine Fumarate 25 MG TABLET PO SCH ×2 (09:01→21:26)
[2020-08-16] MEDS: Cyanocobalamin (B-12) 1,000 MCG TABLET PO SCH (09:02)
[2020-08-16] MEDS: Acetylcysteine 10% 2 ML INHSOL IH SCH ×4 (09:46→21:40)
[2020-08-16] MEDS: Budesonide/Formoterol 160/4.5 1 PUFF INH IH SCH ×2 (10:02→21:40)
[2020-08-16] MEDS: ALPRAZolam 1 MG TABLET PO PRN (16:46)
[2020-08-17] MEDS: Piperacillin/Tazobactam 3.375 GM in 0.9 % Sodium Chloride Mini Bag 100 ML IVPB SCH ×4 (00:44→23:37)
[2020-08-17 03:07] LABS: Hematocrit 39.1 % (35.3-44.9); Hemoglobin 12.7 g/dL (11.5-15.4); Mean Corpuscular HGB Conc 32.5 g/dL (31.6-35.5); Mean Corpuscular Hemoglobin 34.3 pg (28.0-33.3); Mean Corpuscular Volume 105.7 fL (83.0-100.0); Mean Platelet Volume 12.1 fL (9.4-12.4); Platelet Count 179 K/mcL (140-400); Red Cell Distribution Width 14.7 % (11.5-14.5)
[2020-08-17 03:26] LABS: Calcium 9.1 mg/dL (8.6-10.3); Magnesium 2.1 mg/dL (1.6-2.6); Phosphorous 3.2 mg/dL (2.7-4.5); Potassium 3.4 mEq/L (3.5-5.1)
[2020-08-17] MEDS: Ipratropium/Albuterol Neb 3 ML IH SCH ×4 (04:02→22:56)
[2020-08-17] MEDS: *HR* Heparin 5,000 UNIT/ML VIAL SQ SCH ×3 (07:14→20:58)
[2020-08-17] MEDS: D5% in Water 1,000 ML IVC SCH (08:13)
[2020-08-17] MEDS: Insulin LISPRO 300 UNITS/3 ML VIAL SUBQ SCH ×3 (08:14→16:59)
[2020-08-17] MEDS: Aspirin 81 MG TAB.CHEW PO SCH (08:15)
[2020-08-17] MEDS: Venlafaxine XR (24 HR) 75 MG CAP.ER.24H PO SCH (08:16)
[2020-08-17] MEDS: QUEtiapine Fumarate 25 MG TABLET PO SCH ×2 (08:16→20:55)
[2020-08-17] MEDS: Loratadine 10 MG TABLET PO SCH (08:16)
[2020-08-17] MEDS: Famotidine 20 MG TABLET PO SCH (08:16)
[2020-08-17] MEDS: MethylPREDNISolone 40 MG/ML VIAL IVP SCH (08:16)
[2020-08-17] MEDS: Cyanocobalamin (B-12) 1,000 MCG TABLET PO SCH (10:03)
[2020-08-17] MEDS: Budesonide/Formoterol 160/4.5 1 PUFF INH IH SCH ×2 (11:30→22:57)
[2020-08-17] MEDS: ALPRAZolam 1 MG TABLET PO PRN (20:57)
[2020-08-18 02:56] LABS: Hematocrit 35.4 % (35.3-44.9); Mean Corpuscular HGB Conc 30.8 g/dL (31.6-35.5); Mean Corpuscular Volume 107.3 fL (83.0-100.0); Mean Platelet Volume 11.9 fL (9.4-12.4); Platelet Count 150 K/mcL (140-400); Red Cell Distribution Width 14.4 % (11.5-14.5)
[2020-08-18 02:58] LABS: Hemoglobin 10.9 g/dL (11.5-15.4)
[2020-08-18 03:19] LABS: Calcium 8.3 mg/dL (8.6-10.3); Magnesium 1.8 mg/dL (1.6-2.6); Phosphorous 3.2 mg/dL (2.7-4.5); Potassium 3.8 mEq/L (3.5-5.1)
[2020-08-18] MEDS: Ipratropium/Albuterol Neb 3 ML IH SCH ×2 (03:37→10:09)
[2020-08-18] MEDS: *HR* Heparin 5,000 UNIT/ML VIAL SQ SCH (06:03)
[2020-08-18] MEDS: D5% in Water 1,000 ML IVC SCH (06:03)
[2020-08-18] MEDS: Insulin LISPRO 300 UNITS/3 ML VIAL SUBQ SCH ×2 (08:19→11:55)
[2020-08-18] MEDS: Venlafaxine XR (24 HR) 75 MG CAP.ER.24H PO SCH (08:19)
[2020-08-18] MEDS: Aspirin 81 MG TAB.CHEW PO SCH (08:20)
[2020-08-18] MEDS: QUEtiapine Fumarate 25 MG TABLET PO SCH (08:20)
[2020-08-18] MEDS: Famotidine 20 MG TABLET PO SCH (08:20)
[2020-08-18] MEDS: Cyanocobalamin (B-12) 1,000 MCG TABLET PO SCH (08:20)
[2020-08-18] MEDS: Loratadine 10 MG TABLET PO SCH (08:20)
[2020-08-18] MEDS: Piperacillin/Tazobactam 3.375 GM in 0.9 % Sodium Chloride Mini Bag 100 ML IVPB SCH (08:21)
[2020-08-18] MEDS: MethylPREDNISolone 40 MG/ML VIAL IVP SCH (08:22)
[2020-08-18 09:35] LABS: Hematocrit 39.3 % (35.3-44.9); Hemoglobin 12.4 g/dL (11.5-15.4)
[2020-08-18] MEDS: Budesonide/Formoterol 160/4.5 1 PUFF INH IH SCH (10:11)
[2020-08-18] MEDS ORDERED: E-Z-HD (BARIUM SULF) SUSPENSION PO ONE (11:18)
[2020-08-18] MEDS ORDERED: E-Z-PAQUE (BARIUM SULF) SUSP 1 BOTTLE PO ONE (11:18)
[2020-08-18 11:58] VITALS: BP 111/64
== END 2020-08-18 14:34 | disposition home health service (06) | DRG 133 ==
LOC: EMEROOARM 17:06 → ICNU 18:43 → SUATTDRO 18:43 → ICNU 20:21 → 2NNU 08-06 00:50 → 2ANU 08-10 12:04
PROVIDERS: ADMIT Family Medicine; ATTEND Internal Medicine

== ENCOUNTER 2020-09-08 04:11 | Observation (INO) ==
[2020-09-08] MEDS ORDERED: Ipratropium/Albuterol Neb 3 ML IH ONE (04:53)
[2020-09-08] MEDS ORDERED: Dexamethasone Sodium Phos/PF 10 MG/ML VIAL IVP ONE (04:53)
[2020-09-08 05:48] LABS: Basophils # 0.1 K/mcL (0.0-0.2); Basophils % 0.5 %; Eosinophils # 0.1 K/mcL (0.0-0.6); Eosinophils % 0.8 %; Hematocrit 35.9 % (35.3-44.9); Hemoglobin 11.4 g/dL (11.5-15.4); Immature Granulocytes % 0.3 % (0-4); Lymphocytes # 1.8 K/mcL (0.6-4.6); Lymphocytes % 19.8 %; Mean Corpuscular HGB Conc 31.8 g/dL (31.6-35.5); Mean Corpuscular Hemoglobin 32.9 pg (28.0-33.3); Mean Corpuscular Volume 103.5 fL (83.0-100.0); Mean Platelet Volume 11.4 fL (9.4-12.4); Monocytes # 0.8 K/mcL (0.0-1.3); Monocytes % 8.6 %; Neutrophils # 6.4 K/mcL (1.6-8.9); Platelet Count 212 K/mcL (140-400); Red Blood Count 3.47 M/mcL (3.82-4.97); Red Cell Distribution Width 13.3 % (11.5-14.5); White Blood Count 9.1 K/mcL (4.3-11.1)
[2020-09-08 06:23] LABS: Calcium 9.2 mg/dL (8.6-10.3); Potassium 4.1 mEq/L (3.5-5.1)
[2020-09-08] MEDS ORDERED: Vancomycin 2,000 MG/520 ML IV.SOLN IVPB ONE (07:03)
[2020-09-08] MEDS ORDERED: Piperacillin/Tazobactam 3.375 GM in 0.9 % Sodium Chloride Mini Bag 100 ML IVPB ONE (07:03)
[2020-09-08] MEDS ORDERED: Ondansetron 4 MG/2 ML VIAL IVP PRN (08:11)
[2020-09-08] MEDS ORDERED: Acetaminophen 325 MG TABLET PO PRN (08:11)
[2020-09-08] MEDS ORDERED: Naloxone 0.4 MG/ML INJ IVP PRN (08:11)
[2020-09-08 09:45] LABS: Adenovirus Not Detected (Not Detect); Bordetella Pertussis Not Detected (Not Detect); Chlamydophila pneumoniae Not Detected (Not Detect); Coronavirus 229E Not Detected (Not Detect); Coronavirus HKU1 Not Detected (Not Detect); Coronavirus NL63 Not Detected (Not Detect); Coronavirus OC43 Not Detected (Not Detect); Human Metapneumovirus Not Detected (Not Detect); Human Rhinovirus/Enterovirus Not Detected (Not Detect); Influenza A Subtype 2009 H1 Not Detected (Not Detect); Influenza B Not Detected (Not Detect); Mycoplasma pneumoniae Not Detected (Not Detect); Parainfluenza Virus 1 Not Detected (Not Detect); Parainfluenza Virus 2 Not Detected (Not Detect); Parainfluenza Virus 3 Not Detected (Not Detect); Parainfluenza Virus 4 Not Detected (Not Detect); Respiratory Syncytial Virus Not Detected (Not Detect); SARS-CoV-2 Not Detected (Not Detect)
[2020-09-08] MEDS ORDERED: Lidocaine TOPICAL Soln 50 ML BOTTLE TP ONE (10:48)
[2020-09-08] MEDS: Clotrimazole 1% CRM 15 GM TUBE TP SCH ×2 (12:04→21:42)
[2020-09-08] MEDS ORDERED: Albuterol 2.5 MG/3 ML NEBULIZER IH PRN (12:29)
[2020-09-08] MEDS: ALPRAZolam 1 MG TABLET PO SCH ×2 (14:48→20:06)
[2020-09-08] MEDS: Fluconazole 200 MG/100 ML 200 MG/100 ML BAG IVPB SCH (14:50)
[2020-09-08] MEDS: Piperacillin/Tazobactam 3.375 GM in 0.9 % Sodium Chloride Mini Bag 100 ML IVPB SCH ×2 (16:04→23:55)
[2020-09-08] MEDS ORDERED: Vancomycin 1,250 MG/262.5 ML IV.SOLN IVPB SCH (20:00)
[2020-09-08] MEDS ORDERED: Racepinephrine Neb 0.5 ML VIAL IH ONE (22:11)
[2020-09-08] MEDS: Budesonide/Formoterol 160/4.5 1 PUFF INH IH SCH (22:28)
[2020-09-09 02:26] LABS: Hematocrit 33.8 % (35.3-44.9); Hemoglobin 10.7 g/dL (11.5-15.4); Mean Corpuscular HGB Conc 31.7 g/dL (31.6-35.5); Mean Corpuscular Volume 104.3 fL (83.0-100.0); Mean Platelet Volume 11.7 fL (9.4-12.4); Platelet Count 213 K/mcL (140-400); Red Blood Count 3.24 M/mcL (3.82-4.97); Red Cell Distribution Width 13.2 % (11.5-14.5); White Blood Count 9.2 K/mcL (4.3-11.1)
[2020-09-09 02:44] LABS: Calcium 9.2 mg/dL (8.6-10.3); Magnesium 1.8 mg/dL (1.6-2.6); Potassium 4.7 mEq/L (3.5-5.1)
[2020-09-09] MEDS ORDERED: Racepinephrine Neb 0.5 ML VIAL IH SCH (04:00)
[2020-09-09] MEDS ORDERED: *HR* Enoxaparin 40 MG/0.4 ML SYRINGE SQ SCH (07:00)
[2020-09-09] MEDS: Budesonide/Formoterol 160/4.5 1 PUFF INH IH SCH (08:10)
[2020-09-09] MEDS ORDERED: Venlafaxine XR (24 HR) 75 MG CAP.ER.24H PO SCH (09:00)
[2020-09-09] MEDS ORDERED: Aspirin 81 MG TAB.CHEW PO SCH (09:00)
[2020-09-09] MEDS: Piperacillin/Tazobactam 3.375 GM in 0.9 % Sodium Chloride Mini Bag 100 ML IVPB SCH (09:48)
[2020-09-09] MEDS: Fluconazole 200 MG/100 ML 200 MG/100 ML BAG IVPB SCH (09:48)
[2020-09-09] MEDS: Clotrimazole 1% CRM 15 GM TUBE TP SCH (09:50)
[2020-09-09] MEDS ORDERED: *HR* LORazepam 2 MG/ML VIAL ONE (09:59)
[2020-09-09 10:18] VITALS: BP 123/83
[2020-09-09] MEDS: ALPRAZolam 1 MG TABLET PO SCH (10:19)
[2020-09-09] MEDS ORDERED: *HR* LORazepam 2 MG/ML VIAL IVP SCH (16:00)
[2020-09-09] MEDS ORDERED: Doxycycline 100 MG in 0.9 % Sodium Chloride Mini Bag 100 ML IVPB SCH (18:00)
[2020-09-09] MEDS ORDERED: Vancomycin 1,500 MG/265 ML IV.SOLN IVPB SCH (21:00)
== END 2020-09-09 10:10 | disposition short-term general hospital (02) ==
LOC: CDU 04:11 → EMEROOARM 04:11 → SUATTDRO 07:32 → CDU 08:03 → 2ANU 18:15 → ICNU 23:43
PROVIDERS: ADMIT Student in an Organized Health Care Education/Training Program; ATTEND Student in an Organized Health Care Education/Training Program

== ENCOUNTER 2021-01-29 10:16 | Inpatient (IN) ==
[~2021-01-29 10:16] MED LIST changes: +*HR* FentaNYL (PF) 100 MCG/2 ML VIAL ONE; -*HR* Midazolam HCl 5 MG/5 ML VIAL IVP ONE; -*HR* Propofol 200 MG/20 ML VIAL IVP ONE; -*HR* Succinylcholine 200 MG/10 ML VIAL IVP ONE
[2021-01-29] MEDS ORDERED: 0.9 % Sodium Chloride 500 ML ONE ×2 (10:53→10:54)
[2021-01-29] MEDS ORDERED: Heparin 1,000 UNITS/500 mL 500 ML ONE (10:53)
[2021-01-29 11:16] LABS: Basophils # 0.1 K/mcL (0.0-0.2); Basophils % 1.3 %; Eosinophils # 0.1 K/mcL (0.0-0.6); Eosinophils % 1.4 %; Hemoglobin 11.7 g/dL (11.5-15.4); Immature Granulocytes % 0.3 % (0-4); Lymphocytes % 32.4 %; Mean Corpuscular HGB Conc 31.6 g/dL (31.6-35.5); Mean Corpuscular Hemoglobin 29.3 pg (28.0-33.3); Mean Corpuscular Volume 92.7 fL (83.0-100.0); Mean Platelet Volume 12.4 fL (9.4-12.4); Monocytes # 0.6 K/mcL (0.0-1.3); Monocytes % 9.4 %; Neutrophils # 3.5 K/mcL (1.6-8.9); Platelet Count 148 K/mcL (140-400); Red Blood Count 3.99 M/mcL (3.82-4.97); Red Cell Distribution Width 13.6 % (11.5-14.5); Segmented Neutrophils % 55.2 %; White Blood Count 6.3 K/mcL (4.3-11.1)
[2021-01-29] MEDS ORDERED: *HR* OxyCODONE Immed Rel 5 MG TABLET PO PRN (11:19)
[2021-01-29] MEDS ORDERED: Promethazine 6.25 MG in Water for inj. (sterile) 20 ML IVPB PRN (11:19)
[2021-01-29] MEDS ORDERED: Ondansetron 4 MG/2 ML VIAL IVP PRN (11:19)
[2021-01-29 11:26] LABS: INR 1.1; Prothrombin Time 12.4 Seconds (9.4-12.1)
[2021-01-29] MEDS ORDERED: 0.9 % Sodium Chloride 1,000 ML ONE (11:33)
[2021-01-29] MEDS ORDERED: Sugammadex Sodium 200 MG/2 ML VIAL IV ONE (13:31)
[2021-01-29] MEDS: *HR* HYDROmorphone PF 0.5 MG/0.5 ML SYRINGE IVP PRN ×2 (13:42→13:49)
[2021-01-29] MEDS ORDERED: Naloxone 0.4 MG/ML INJ IVP PRN (13:45)
[2021-01-29] MEDS ORDERED: *HR* HYDROcodone/Acet 5/325 mg TABLET PO PRN (13:50)
[2021-01-29] MEDS ORDERED: *HR* OxyCODONE/APAP 5/325 TABLET PO PRN (13:50)
[2021-01-29] MEDS ORDERED: Albuterol 2.5 MG/3 ML NEBULIZER IH PRN (17:37)
[2021-01-29] MEDS: Budesonide/Formoterol 160/4.5 1 PUFF INH IH SCH (19:38)
[2021-01-29] MEDS: Ondansetron 4 MG/2 ML VIAL IVP PRN (21:06)
[2021-01-29] MEDS: ALPRAZolam 1 MG TABLET PO SCH (21:06)
[2021-01-30 01:19] LABS: Hematocrit 30.7 % (35.3-44.9); Hemoglobin 9.6 g/dL (11.5-15.4); Mean Corpuscular HGB Conc 31.3 g/dL (31.6-35.5); Mean Corpuscular Hemoglobin 29.7 pg (28.0-33.3); Mean Platelet Volume 12.1 fL (9.4-12.4); Platelet Count 123 K/mcL (140-400); Red Blood Count 3.23 M/mcL (3.82-4.97); White Blood Count 10.4 K/mcL (4.3-11.1)
[2021-01-30 01:39] LABS: Calcium 8.2 mg/dL (8.6-10.3); Potassium 4.5 mEq/L (3.5-5.1)
[2021-01-30 01:41] LABS: Magnesium 1.8 mg/dL (1.6-2.6); Phosphorous 6.4 mg/dL (2.7-4.5)
[2021-01-30] MEDS: ALPRAZolam 1 MG TABLET PO SCH ×3 (07:46→20:40)
[2021-01-30] MEDS: Cyanocobalamin (B-12) 1,000 MCG TABLET PO SCH (07:46)
[2021-01-30] MEDS: Venlafaxine XR (24 HR) 75 MG CAP.ER.24H PO SCH (07:46)
[2021-01-30] MEDS: Loratadine 10 MG TABLET PO SCH (07:46)
[2021-01-30] MEDS: Budesonide/Formoterol 160/4.5 1 PUFF INH IH SCH ×2 (07:53→21:27)
[2021-01-30] MEDS ORDERED: Ringers Solution, Lactated 1,000 ML IVC SCH (08:45)
[2021-01-30] MEDS ORDERED: Acetaminophen IV 500 MG/50 ML BAG IVPB ONE (12:18)
[2021-01-30 14:34] LABS: Hematocrit 27.6 % (35.3-44.9); Hemoglobin 8.9 g/dL (11.5-15.4)
[2021-01-30 19:22] LABS: Hematocrit 26.1 % (35.3-44.9); Hemoglobin 8.5 g/dL (11.5-15.4)
[2021-01-30] MEDS: Ondansetron 4 MG/2 ML VIAL IVP PRN (20:40)
[2021-01-31] MEDS: Budesonide/Formoterol 160/4.5 1 PUFF INH IH SCH ×2 (07:40→19:58)
[2021-01-31] MEDS: ALPRAZolam 1 MG TABLET PO SCH ×3 (07:46→19:45)
[2021-01-31] MEDS: Venlafaxine XR (24 HR) 75 MG CAP.ER.24H PO SCH (07:46)
[2021-01-31] MEDS: Cyanocobalamin (B-12) 1,000 MCG TABLET PO SCH (07:46)
[2021-01-31] MEDS: Loratadine 10 MG TABLET PO SCH (07:46)
[2021-01-31 08:06] LABS: Hematocrit 26.2 % (35.3-44.9); Hemoglobin 8.3 g/dL (11.5-15.4)
[2021-01-31 08:48] LABS: Calcium 8.5 mg/dL (8.6-10.3); Magnesium 1.8 mg/dL (1.6-2.6); Potassium 4.4 mEq/L (3.5-5.1)
[2021-01-31] MEDS ORDERED: Ringers Solution, Lactated 1,000 ML IVC SCH (09:30)
[2021-01-31] MEDS: Isosorbide MONOnitrate (24 HR) 30 MG TAB.ER.24H PO SCH (10:32)
[2021-01-31 10:48] LABS: INR 1.2; Prothrombin Time 13.1 Seconds (9.4-12.1)
[2021-01-31] MEDS: *HR* OxyCODONE Immed Rel 5 MG TABLET PO PRN (12:26)
[2021-01-31] MEDS: 0.9 % Sodium Chloride 1,000 ML IVC SCH ×2 (14:40→21:30)
[2021-01-31 17:28] LABS: Hematocrit 25.9 % (35.3-44.9)
[2021-02-01 01:25] LABS: Hematocrit 25.1 % (35.3-44.9); Hemoglobin 7.9 g/dL (11.5-15.4)
[2021-02-01 01:43] LABS: Calcium 8.2 mg/dL (8.6-10.3); Magnesium 1.7 mg/dL (1.6-2.6); Phosphorous 3.9 mg/dL (2.7-4.5); Potassium 4.1 mEq/L (3.5-5.1)
[2021-02-01] MEDS ORDERED: Simethicone 80 MG TAB.CHEW PO PRN (03:19)
[2021-02-01] MEDS: 0.9 % Sodium Chloride 1,000 ML IVC SCH ×2 (07:15→20:02)
[2021-02-01] MEDS: Budesonide/Formoterol 160/4.5 1 PUFF INH IH SCH ×3 (07:35→23:16)
[2021-02-01] MEDS: Isosorbide MONOnitrate (24 HR) 30 MG TAB.ER.24H PO SCH (08:07)
[2021-02-01] MEDS: ALPRAZolam 1 MG TABLET PO SCH ×3 (08:07→20:02)
[2021-02-01] MEDS: Venlafaxine XR (24 HR) 75 MG CAP.ER.24H PO SCH (08:07)
[2021-02-01] MEDS: Loratadine 10 MG TABLET PO SCH (08:08)
[2021-02-01] MEDS: Cyanocobalamin (B-12) 1,000 MCG TABLET PO SCH (08:08)
[2021-02-01 11:34] LABS: Hematocrit 21.5 % (35.3-44.9); Hemoglobin 6.7 g/dL (11.5-15.4)
[2021-02-01] MEDS: *HR* OxyCODONE Immed Rel 5 MG TABLET PO PRN (16:28)
[2021-02-02] MEDS: Ipratropium/Albuterol Neb 3 ML IH PRN (00:46)
[2021-02-02 04:08] LABS: Bilirubin,Urine Negative (Negative); Blood,Urine Moderate (Negative); Clarity,Urine Clear (Clear); Color,Urine Colorless (Yellow); Glucose,Urine (UA) Normal (Normal); Ketones,Urine Negative (Negative); Leukocyte Esterase,Urine Negative (Negative); Nitrite,Urine Negative (Negative); Protein,Urine 30 mg/dL (Neg-Trace); RBC,Urine 0-3 per hpf (0-3); Specific Gravity,Urine 1.009 (1.010-1.025); Urobilinogen,Urine Normal (Normal); WBC,Urine 0-3 per hpf (0-3)
[2021-02-02 04:26] LABS: Protein/Creatinine Ratio,Urine 0.88 mg/mg (0.00-0.20); Sodium, Urine 33.5 mEq/L
[2021-02-02 05:17] LABS: Basophils # 0.1 K/mcL (0.0-0.2); Basophils % 0.7 %; Eosinophils # 0.1 K/mcL (0.0-0.6); Eosinophils % 1.5 %; Hematocrit 23.7 % (35.3-44.9); Hemoglobin 7.5 g/dL (11.5-15.4); Immature Granulocytes % 0.3 % (0-4); Lymphocytes # 1.6 K/mcL (0.6-4.6); Lymphocytes % 23.3 %; Mean Corpuscular HGB Conc 31.6 g/dL (31.6-35.5); Mean Corpuscular Hemoglobin 30.4 pg (28.0-33.3); Mean Platelet Volume 11.9 fL (9.4-12.4); Monocytes # 0.9 K/mcL (0.0-1.3); Platelet Count 107 K/mcL (140-400); Red Blood Count 2.47 M/mcL (3.82-4.97); Red Cell Distribution Width 14.4 % (11.5-14.5); Segmented Neutrophils % 60.2 %; White Blood Count 6.7 K/mcL (4.3-11.1)
[2021-02-02 05:26] LABS: Calcium 8.1 mg/dL (8.6-10.3); Magnesium 1.8 mg/dL (1.6-2.6); Phosphorous 3.3 mg/dL (2.7-4.5); Potassium 4.6 mEq/L (3.5-5.1)
[2021-02-02] MEDS: 0.9 % Sodium Chloride 1,000 ML IVC SCH ×2 (05:47→15:43)
[2021-02-02] MEDS: Isosorbide MONOnitrate (24 HR) 30 MG TAB.ER.24H PO SCH (08:36)
[2021-02-02] MEDS: Venlafaxine XR (24 HR) 75 MG CAP.ER.24H PO SCH (08:36)
[2021-02-02] MEDS: Cyanocobalamin (B-12) 1,000 MCG TABLET PO SCH (08:36)
[2021-02-02] MEDS: Loratadine 10 MG TABLET PO SCH (08:36)
[2021-02-02] MEDS: ALPRAZolam 1 MG TABLET PO SCH ×3 (08:36→20:21)
[2021-02-02] MEDS: Budesonide/Formoterol 160/4.5 1 PUFF INH IH SCH (19:52)
[2021-02-02] MEDS: *HR* OxyCODONE Immed Rel 5 MG TABLET PO PRN (20:45)
[2021-02-03] MEDS: Ipratropium/Albuterol Neb 3 ML IH SCH ×5 (00:26→20:33)
[2021-02-03] MEDS: 0.9 % Sodium Chloride 1,000 ML IVC SCH ×4 (01:21→22:22)
[2021-02-03] MEDS: Budesonide/Formoterol 160/4.5 1 PUFF INH IH SCH ×2 (07:53→20:34)
[2021-02-03] MEDS: Loratadine 10 MG TABLET PO SCH (08:28)
[2021-02-03] MEDS: ALPRAZolam 1 MG TABLET PO SCH ×3 (08:28→20:26)
[2021-02-03] MEDS: Isosorbide MONOnitrate (24 HR) 30 MG TAB.ER.24H PO SCH (08:28)
[2021-02-03] MEDS: Venlafaxine XR (24 HR) 75 MG CAP.ER.24H PO SCH (08:28)
[2021-02-03] MEDS: *HR* OxyCODONE Immed Rel 5 MG TABLET PO PRN (08:29)
[2021-02-03] MEDS: Cyanocobalamin (B-12) 1,000 MCG TABLET PO SCH (08:29)
[2021-02-03 16:29] LABS: Red Blood Count 2.77 M/mcL (3.82-4.97)
[2021-02-03 16:31] LABS: Basophils # 0.1 K/mcL (0.0-0.2); Basophils % 0.8 %; Eosinophils # 0.1 K/mcL (0.0-0.6); Eosinophils % 1.4 %; Hematocrit 25.8 % (35.3-44.9); Hemoglobin 8.4 g/dL (11.5-15.4); Immature Granulocytes % 0.6 % (0-4); Immature Platelets 5.6 % (1.1-6.1); Lymphocytes # 0.9 K/mcL (0.6-4.6); Lymphocytes % 11.4 %; Mean Corpuscular HGB Conc 32.6 g/dL (31.6-35.5); Mean Corpuscular Hemoglobin 30.3 pg (28.0-33.3); Mean Corpuscular Volume 93.1 fL (83.0-100.0); Monocytes % 12.9 %; Neutrophils # 5.7 K/mcL (1.6-8.9); Platelet Count 128 K/mcL (140-400); Red Cell Distribution Width 13.9 % (11.5-14.5); Segmented Neutrophils % 72.9 %; White Blood Count 7.8 K/mcL (4.3-11.1)
[2021-02-03 16:50] LABS: Calcium 8.9 mg/dL (8.6-10.3); Potassium 5.4 mEq/L (3.5-5.1)
[2021-02-04 01:47] LABS: Basophils # 0.1 K/mcL (0.0-0.2); Basophils % 0.6 %; Eosinophils # 0.1 K/mcL (0.0-0.6); Eosinophils % 1.4 %; Hematocrit 24.2 % (35.3-44.9); Hemoglobin 7.5 g/dL (11.5-15.4); Immature Granulocytes % 0.4 % (0-4); Lymphocytes # 1.4 K/mcL (0.6-4.6); Lymphocytes % 17.4 %; Mean Corpuscular Volume 96.8 fL (83.0-100.0); Mean Platelet Volume 11.5 fL (9.4-12.4); Monocytes % 13.1 %; Neutrophils # 5.3 K/mcL (1.6-8.9); Platelet Count 147 K/mcL (140-400); Red Cell Distribution Width 13.8 % (11.5-14.5); Segmented Neutrophils % 67.1 %; White Blood Count 7.9 K/mcL (4.3-11.1)
[2021-02-04 02:07] LABS: Calcium 8.7 mg/dL (8.6-10.3); Potassium 4.7 mEq/L (3.5-5.1)
[2021-02-04] MEDS: *HR* OxyCODONE Immed Rel 5 MG TABLET PO PRN ×2 (05:46→21:05)
[2021-02-04] MEDS: Ipratropium/Albuterol Neb 3 ML IH SCH ×4 (05:51→20:22)
[2021-02-04] MEDS: ALPRAZolam 1 MG TABLET PO SCH ×3 (08:42→21:05)
[2021-02-04] MEDS: Loratadine 10 MG TABLET PO SCH (08:42)
[2021-02-04] MEDS: Venlafaxine XR (24 HR) 75 MG CAP.ER.24H PO SCH (08:43)
[2021-02-04] MEDS: Isosorbide MONOnitrate (24 HR) 30 MG TAB.ER.24H PO SCH (08:43)
[2021-02-04] MEDS: Cyanocobalamin (B-12) 1,000 MCG TABLET PO SCH (08:44)
[2021-02-04] MEDS: Budesonide/Formoterol 160/4.5 1 PUFF INH IH SCH ×2 (11:03→20:22)
[2021-02-04] MEDS: polyethylene glycoL 3350 17 GM POWD.PACK PO PRN (21:29)
[2021-02-05 00:25] LABS: Basophils # 0.1 K/mcL (0.0-0.2); Basophils % 0.6 %; Eosinophils # 0.1 K/mcL (0.0-0.6); Eosinophils % 0.8 %; Hematocrit 23.5 % (35.3-44.9); Hemoglobin 7.4 g/dL (11.5-15.4); Immature Granulocytes % 0.6 % (0-4); Lymphocytes # 0.7 K/mcL (0.6-4.6); Lymphocytes % 7.5 %; Mean Corpuscular HGB Conc 31.5 g/dL (31.6-35.5); Mean Corpuscular Hemoglobin 30.1 pg (28.0-33.3); Mean Corpuscular Volume 95.5 fL (83.0-100.0); Mean Platelet Volume 11.4 fL (9.4-12.4); Monocytes # 1.4 K/mcL (0.0-1.3); Monocytes % 15.5 %; Neutrophils # 6.8 K/mcL (1.6-8.9); Platelet Count 156 K/mcL (140-400); Red Blood Count 2.46 M/mcL (3.82-4.97); Red Cell Distribution Width 13.8 % (11.5-14.5); White Blood Count 9.1 K/mcL (4.3-11.1)
[2021-02-05 00:46] LABS: Calcium 8.7 mg/dL (8.6-10.3); Potassium 4.8 mEq/L (3.5-5.1)
[2021-02-05 01:54] LABS: Iron < 10 mcg/dL (50-170); Transferrin 153 mg/dL (203-362)
[2021-02-05] MEDS: Ipratropium/Albuterol Neb 3 ML IH SCH ×4 (04:25→21:40)
[2021-02-05] MEDS: *HR* OxyCODONE Immed Rel 5 MG TABLET PO PRN ×2 (05:05→21:25)
[2021-02-05] MEDS ORDERED: levoFLOXacin 500 MG/100 ML 500 MG/100 ML BAG IVPB ONE (07:08)
[2021-02-05] MEDS: Budesonide/Formoterol 160/4.5 1 PUFF INH IH SCH ×2 (07:49→21:41)
[2021-02-05] MEDS: Isosorbide MONOnitrate (24 HR) 30 MG TAB.ER.24H PO SCH (11:14)
[2021-02-05] MEDS: Venlafaxine XR (24 HR) 75 MG CAP.ER.24H PO SCH (11:15)
[2021-02-05] MEDS: Loratadine 10 MG TABLET PO SCH (11:16)
[2021-02-05] MEDS: ALPRAZolam 1 MG TABLET PO SCH (11:16)
[2021-02-05] MEDS: Cyanocobalamin (B-12) 1,000 MCG TABLET PO SCH (11:20)
[2021-02-05] MEDS: polyethylene glycoL 3350 17 GM POWD.PACK PO PRN (11:35)
[2021-02-05 14:28] LABS: ABG Base Excess -4 mEq/L (-2 to 3); ABG HCO3 22 mEq/L (21-27); ABG Oxygen Saturation 88 % (95-98); ABG PCO2 41 mmHg (35-45); ABG PH 7.34 pH Units (7.32-7.45); ABG PO2 57 mmHg (85-104); ABG TCO2 23 mEq/L (20-26)
[2021-02-05] MEDS ORDERED: DAPTOmycin 300 MG in 0.9 % Sodium Chloride 100 ML IVPB SCH (16:00)
[2021-02-05] MEDS: levoFLOXacin 750 MG/150 ML 750 MG/150 ML BAG IVPB SCH (18:01)
[2021-02-05 18:41] LABS: INR 1.3; Prothrombin Time 14.7 Seconds (9.4-12.1)
[2021-02-05 19:08] LABS: Appearance of Body Fluid Cloudy (Clear); Volume of Body Fluid 12 mL
[2021-02-05] MEDS: Acetaminophen 325 MG TABLET PO PRN (22:59)
[2021-02-05] MEDS: Ondansetron 4 MG/2 ML VIAL IVP PRN (23:30)
[2021-02-06 03:26] LABS: Basophils # 0.1 K/mcL (0.0-0.2); Basophils % 0.4 %; Eosinophils % 0.3 %; Hematocrit 23.5 % (35.3-44.9); Hemoglobin 7.2 g/dL (11.5-15.4); Immature Granulocytes % 0.7 % (0-4); Lymphocytes # 0.9 K/mcL (0.6-4.6); Lymphocytes % 7.7 %; Mean Corpuscular HGB Conc 30.6 g/dL (31.6-35.5); Mean Corpuscular Hemoglobin 29.4 pg (28.0-33.3); Mean Corpuscular Volume 95.9 fL (83.0-100.0); Mean Platelet Volume 11.8 fL (9.4-12.4); Monocytes # 1.9 K/mcL (0.0-1.3); Monocytes % 16.1 %; Neutrophils # 8.9 K/mcL (1.6-8.9); Platelet Count 166 K/mcL (140-400); Red Blood Count 2.45 M/mcL (3.82-4.97); Red Cell Distribution Width 13.7 % (11.5-14.5); Segmented Neutrophils % 74.8 %; White Blood Count 11.9 K/mcL (4.3-11.1)
[2021-02-06 04:03] LABS: Calcium 8.5 mg/dL (8.6-10.3); Potassium 4.6 mEq/L (3.5-5.1)
[2021-02-06] MEDS: Ipratropium/Albuterol Neb 3 ML IH SCH ×4 (04:28→21:22)
[2021-02-06 05:51] LABS: Adenovirus Not Detected (Not Detect); Bordetella Pertussis Not Detected (Not Detect); Chlamydophila pneumoniae Not Detected (Not Detect); Coronavirus 229E Not Detected (Not Detect); Coronavirus HKU1 Not Detected (Not Detect); Coronavirus NL63 Not Detected (Not Detect); Coronavirus OC43 Not Detected (Not Detect); Human Metapneumovirus Not Detected (Not Detect); Human Rhinovirus/Enterovirus Not Detected (Not Detect); Influenza A Subtype 2009 H1 Not Detected (Not Detect); Influenza B Not Detected (Not Detect); Mycoplasma pneumoniae Not Detected (Not Detect); Parainfluenza Virus 1 Not Detected (Not Detect); Parainfluenza Virus 2 Not Detected (Not Detect); Parainfluenza Virus 3 Not Detected (Not Detect); Parainfluenza Virus 4 Not Detected (Not Detect); Respiratory Syncytial Virus Not Detected (Not Detect); SARS-CoV-2 Not Detected (Not Detect)
[2021-02-06] MEDS: Ondansetron 4 MG/2 ML VIAL IVP PRN ×2 (08:14→18:21)
[2021-02-06] MEDS: Cyanocobalamin (B-12) 1,000 MCG TABLET PO SCH (08:14)
[2021-02-06] MEDS: Loratadine 10 MG TABLET PO SCH (08:14)
[2021-02-06] MEDS: Isosorbide MONOnitrate (24 HR) 30 MG TAB.ER.24H PO SCH (08:14)
[2021-02-06] MEDS: Venlafaxine XR (24 HR) 75 MG CAP.ER.24H PO SCH (08:14)
[2021-02-06] MEDS: *HR* OxyCODONE Immed Rel 5 MG TABLET PO PRN ×2 (08:14→16:03)
[2021-02-06] MEDS ORDERED: levoFLOXacin 250 MG TABLET PO SCH (09:00)
[2021-02-06] MEDS: Budesonide/Formoterol 160/4.5 1 PUFF INH IH SCH ×2 (09:10→21:22)
[2021-02-06] MEDS ORDERED: Acetaminophen IV 1,000 MG/100 ML BAG IVPB ONE (22:22)
[2021-02-06] MEDS ORDERED: Albumin 25% 25gram/100mL 25 GM/100 ML IV.SOLN IVPB ONE (23:50)
[2021-02-07] MEDS ORDERED: Albumin 25% 25gram/100mL 25 GM/100 ML IV.SOLN IVPB ONE (01:56)
[2021-02-07] MEDS: Ipratropium/Albuterol Neb 3 ML IH SCH ×4 (04:17→23:17)
[2021-02-07] MEDS: Loratadine 10 MG TABLET PO SCH (07:42)
[2021-02-07] MEDS: Isosorbide MONOnitrate (24 HR) 30 MG TAB.ER.24H PO SCH (07:42)
[2021-02-07] MEDS: Cyanocobalamin (B-12) 1,000 MCG TABLET PO SCH (07:42)
[2021-02-07] MEDS: Venlafaxine XR (24 HR) 75 MG CAP.ER.24H PO SCH (07:42)
[2021-02-07] MEDS: Acetaminophen 325 MG TABLET PO PRN ×2 (07:44→16:42)
[2021-02-07] MEDS: Budesonide/Formoterol 160/4.5 1 PUFF INH IH SCH ×2 (08:20→23:17)
[2021-02-07 09:00] LABS: Basophils % 0.3 %; Eosinophils # 0.1 K/mcL (0.0-0.6); Eosinophils % 0.6 %; Hematocrit 23.7 % (35.3-44.9); Hemoglobin 7.4 g/dL (11.5-15.4); Immature Granulocytes % 1.1 % (0-4); Lymphocytes # 0.7 K/mcL (0.6-4.6); Lymphocytes % 6.9 %; Mean Corpuscular HGB Conc 31.2 g/dL (31.6-35.5); Mean Corpuscular Hemoglobin 29.5 pg (28.0-33.3); Mean Corpuscular Volume 94.4 fL (83.0-100.0); Mean Platelet Volume 11.5 fL (9.4-12.4); Monocytes # 1.3 K/mcL (0.0-1.3); Monocytes % 14.1 %; Neutrophils # 7.3 K/mcL (1.6-8.9); Platelet Count 173 K/mcL (140-400); Red Blood Count 2.51 M/mcL (3.82-4.97); Red Cell Distribution Width 13.8 % (11.5-14.5); White Blood Count 9.5 K/mcL (4.3-11.1)
[2021-02-07] MEDS: *HR* OxyCODONE Immed Rel 5 MG TABLET PO PRN (10:42)
[2021-02-07] MEDS: *HR* LORazepam 0.5 MG TABLET PO PRN (10:43)
[2021-02-07 11:08] LABS: Albumin 3.3 g/dL (3.5-5.7); Albumin/Globulin Ratio 1.1 (1.1-2.2); Bilirubin,Total 1.4 mg/dL (0.3-1.0); Globulin 2.9 g/dL (2.4-3.5); Potassium 4.7 mEq/L (3.5-5.1); Total Protein 6.2 g/dL (6.4-8.9)
[2021-02-07] MEDS ORDERED: 0.9 % Sodium Chloride 1,000 ML IVC SCH (12:15)
[2021-02-07] MEDS: Sennosides/Docusate Sodium TABLET PO SCH (12:51)
[2021-02-07] MEDS: levoFLOXacin 750 MG/150 ML 750 MG/150 ML BAG IVPB SCH (15:35)
[2021-02-08] MEDS ORDERED: methylPREDNISolone 125 MG/2 ML VIAL IVP STA (02:23)
[2021-02-08] MEDS ORDERED: Levalbuterol Neb 1.25 MG/3 ML IH STA (02:26)
[2021-02-08] MEDS ORDERED: Acetylcysteine 10% 2 ML INHSOL IH SCH (02:30)
[2021-02-08 02:39] LABS: ABG Base Excess -10 mEq/L (-2 to 3); ABG HCO3 16 mEq/L (21-27); ABG Oxygen Saturation 81 % (95-98); ABG PCO2 38 mmHg (35-45); ABG PH 7.24 pH Units (7.32-7.45); ABG PO2 52 mmHg (85-104); ABG TCO2 18 mEq/L (20-26)
[2021-02-08 02:57] LABS: Albumin 3.1 g/dL (3.5-5.7); Bilirubin,Total 1.4 mg/dL (0.3-1.0); Calcium 8.7 mg/dL (8.6-10.3); Globulin 3.2 g/dL (2.4-3.5); Magnesium 2.1 mg/dL (1.6-2.6); Phosphorous 4.9 mg/dL (2.7-4.5); Potassium 4.7 mEq/L (3.5-5.1); Total Protein 6.3 g/dL (6.4-8.9)
[2021-02-08] MEDS: Ipratropium/Albuterol Neb 3 ML IH SCH ×4 (03:46→21:17)
[2021-02-08 06:28] LABS: Basophils % 0.1 %; Hematocrit 22.2 % (35.3-44.9); Immature Granulocytes % 1.5 % (0-4); Lymphocytes # 0.2 K/mcL (0.6-4.6); Lymphocytes % 2.1 %; Mean Corpuscular HGB Conc 31.5 g/dL (31.6-35.5); Mean Corpuscular Hemoglobin 29.8 pg (28.0-33.3); Mean Corpuscular Volume 94.5 fL (83.0-100.0); Mean Platelet Volume 11.7 fL (9.4-12.4); Monocytes # 0.7 K/mcL (0.0-1.3); Monocytes % 7.4 %; Neutrophils # 8.2 K/mcL (1.6-8.9); Platelet Count 182 K/mcL (140-400); Red Blood Count 2.35 M/mcL (3.82-4.97); Segmented Neutrophils % 88.9 %
[2021-02-08 06:31] LABS: White Blood Count 9.2 K/mcL (4.3-11.1)
[2021-02-08] MEDS: 0.9 % Sodium Chloride 1,000 ML IVC SCH ×2 (06:38→20:42)
[2021-02-08 06:47] LABS: Platelet Estimate Normal (Normal)
[2021-02-08] MEDS: Acetylcysteine 10% 2 ML INHSOL IH SCH ×4 (07:56→21:17)
[2021-02-08] MEDS: Budesonide/Formoterol 160/4.5 1 PUFF INH IH SCH ×2 (07:56→21:17)
[2021-02-08] MEDS ORDERED: Piperacillin/Tazobactam 3.375 GM in 0.9 % Sodium Chloride Mini Bag 100 ML IVPB SCH (08:00)
[2021-02-08] MEDS: Cyanocobalamin (B-12) 1,000 MCG TABLET PO SCH (10:26)
[2021-02-08] MEDS: Isosorbide MONOnitrate (24 HR) 30 MG TAB.ER.24H PO SCH (10:26)
[2021-02-08] MEDS: *HR* OxyCODONE Immed Rel 5 MG TABLET PO PRN ×2 (10:26→20:41)
[2021-02-08] MEDS: Sennosides/Docusate Sodium TABLET PO SCH (10:27)
[2021-02-08] MEDS: Loratadine 10 MG TABLET PO SCH (10:27)
[2021-02-08] MEDS: Piperacillin/Tazobactam 3.375 GM in 0.9 % Sodium Chloride Mini Bag 100 ML IVPB SCH (17:32)
[2021-02-08] MEDS: *HR* LORazepam 0.5 MG TABLET PO PRN ×2 (18:02→22:36)
[2021-02-09 03:26] LABS: Basophils % 0.2 %; Hematocrit 21.9 % (35.3-44.9); Hemoglobin 6.8 g/dL (11.5-15.4); Immature Granulocytes % 0.6 % (0-4); Lymphocytes # 0.4 K/mcL (0.6-4.6); Lymphocytes % 4.4 %; Mean Corpuscular HGB Conc 31.1 g/dL (31.6-35.5); Mean Corpuscular Hemoglobin 29.3 pg (28.0-33.3); Mean Corpuscular Volume 94.4 fL (83.0-100.0); Mean Platelet Volume 11.8 fL (9.4-12.4); Monocytes # 0.9 K/mcL (0.0-1.3); Monocytes % 9.1 %; Neutrophils # 8.3 K/mcL (1.6-8.9); Platelet Count 204 K/mcL (140-400); Red Blood Count 2.32 M/mcL (3.82-4.97); Red Cell Distribution Width 14.1 % (11.5-14.5); Segmented Neutrophils % 85.7 %; White Blood Count 9.7 K/mcL (4.3-11.1)
[2021-02-09 03:43] LABS: Albumin 2.9 g/dL (3.5-5.7); Bilirubin,Total 0.8 mg/dL (0.3-1.0); Globulin 2.9 g/dL (2.4-3.5); Potassium 4.8 mEq/L (3.5-5.1); Total Protein 5.8 g/dL (6.4-8.9)
[2021-02-09] MEDS: Acetylcysteine 10% 2 ML INHSOL IH SCH ×4 (03:59→21:09)
[2021-02-09] MEDS: Ipratropium/Albuterol Neb 3 ML IH SCH ×4 (03:59→21:06)
[2021-02-09] MEDS: Piperacillin/Tazobactam 3.375 GM in 0.9 % Sodium Chloride Mini Bag 100 ML IVPB SCH ×2 (05:16→19:34)
[2021-02-09] MEDS: Acetaminophen 325 MG TABLET PO PRN (06:07)
[2021-02-09] MEDS: *HR* LORazepam 0.5 MG TABLET PO PRN ×3 (06:07→20:51)
[2021-02-09] MEDS: Sennosides/Docusate Sodium TABLET PO SCH ×2 (09:12→20:51)
[2021-02-09] MEDS: Cyanocobalamin (B-12) 1,000 MCG TABLET PO SCH (09:13)
[2021-02-09] MEDS: Isosorbide MONOnitrate (24 HR) 30 MG TAB.ER.24H PO SCH (09:13)
[2021-02-09] MEDS: Loratadine 10 MG TABLET PO SCH (09:14)
[2021-02-09] MEDS: Budesonide/Formoterol 160/4.5 1 PUFF INH IH SCH ×2 (10:18→21:06)
[2021-02-09] MEDS: *HR* OxyCODONE Immed Rel 5 MG TABLET PO PRN ×2 (15:28→20:52)
[2021-02-09] MEDS ORDERED: 0.9 % Sodium Chloride 250 ML ONE (20:18)
[2021-02-10] MEDS: Ipratropium/Albuterol Neb 3 ML IH SCH ×4 (04:10→22:12)
[2021-02-10] MEDS: Acetylcysteine 10% 2 ML INHSOL IH SCH ×4 (04:10→22:13)
[2021-02-10] MEDS: *HR* OxyCODONE Immed Rel 5 MG TABLET PO PRN ×2 (04:13→20:06)
[2021-02-10] MEDS: *HR* LORazepam 0.5 MG TABLET PO PRN ×4 (04:45→20:06)
[2021-02-10] MEDS ORDERED: *HR* LORazepam 2 MG/ML VIAL ONE (05:21)
[2021-02-10] MEDS: *HR* LORazepam 2 MG/ML VIAL IVP ONE ×2 (05:23→05:31)
[2021-02-10] MEDS: Piperacillin/Tazobactam 3.375 GM in 0.9 % Sodium Chloride Mini Bag 100 ML IVPB SCH ×2 (05:26→19:10)
[2021-02-10 06:08] LABS: Calcium 9.3 mg/dL (8.6-10.3); Potassium 4.4 mEq/L (3.5-5.1)
[2021-02-10 06:13] LABS: Basophils # 0.1 K/mcL (0.0-0.2); Basophils % 0.4 %; Eosinophils % 0.1 %; Hematocrit 30.6 % (35.3-44.9); Immature Granulocytes % 0.5 % (0-4); Lymphocytes # 0.9 K/mcL (0.6-4.6); Lymphocytes % 7.5 %; Mean Corpuscular HGB Conc 31.4 g/dL (31.6-35.5); Mean Corpuscular Hemoglobin 29.4 pg (28.0-33.3); Mean Corpuscular Volume 93.6 fL (83.0-100.0); Mean Platelet Volume 11.9 fL (9.4-12.4); Monocytes # 1.3 K/mcL (0.0-1.3); Monocytes % 11.4 %; Neutrophils # 9.4 K/mcL (1.6-8.9); Platelet Count 291 K/mcL (140-400); Red Blood Count 3.27 M/mcL (3.82-4.97); Red Cell Distribution Width 14.5 % (11.5-14.5); Segmented Neutrophils % 80.1 %; White Blood Count 11.8 K/mcL (4.3-11.1)
[2021-02-10 06:27] LABS: Hemoglobin 9.6 g/dL (11.5-15.4)
[2021-02-10] MEDS: Budesonide/Formoterol 160/4.5 1 PUFF INH IH SCH ×2 (09:34→22:13)
[2021-02-10] MEDS: Sennosides/Docusate Sodium TABLET PO SCH ×2 (10:45→22:54)
[2021-02-10] MEDS: Loratadine 10 MG TABLET PO SCH (10:45)
[2021-02-10] MEDS: Isosorbide MONOnitrate (24 HR) 30 MG TAB.ER.24H PO SCH (10:46)
[2021-02-10] MEDS: Cyanocobalamin (B-12) 1,000 MCG TABLET PO SCH (10:46)
[2021-02-10] MEDS: Ipratropium/Albuterol Neb 3 ML IH PRN (19:19)
[2021-02-10] MEDS: 0.9 % Sodium Chloride 1,000 ML IVC SCH ×4 (19:51→20:29)
[2021-02-10] MEDS ORDERED: ALPRAZolam 1 MG TABLET PO PRN (20:12)
[2021-02-11] MEDS: *HR* OxyCODONE Immed Rel 5 MG TABLET PO PRN ×4 (01:49→16:47)
[2021-02-11] MEDS: *HR* LORazepam 0.5 MG TABLET PO PRN ×3 (01:51→14:13)
[2021-02-11] MEDS: Acetylcysteine 10% 2 ML INHSOL IH SCH ×2 (04:03→08:50)
[2021-02-11] MEDS: Ipratropium/Albuterol Neb 3 ML IH SCH ×4 (04:03→20:51)
[2021-02-11] MEDS: Piperacillin/Tazobactam 3.375 GM in 0.9 % Sodium Chloride Mini Bag 100 ML IVPB SCH ×2 (05:05→18:34)
[2021-02-11] MEDS: 0.9 % Sodium Chloride 1,000 ML IVC SCH (05:08)
[2021-02-11 06:51] LABS: Hemoglobin 8.8 g/dL (11.5-15.4); Mean Corpuscular HGB Conc 32.6 g/dL (31.6-35.5); Mean Corpuscular Hemoglobin 30.3 pg (28.0-33.3); Mean Corpuscular Volume 93.1 fL (83.0-100.0); Mean Platelet Volume 11.4 fL (9.4-12.4); Platelet Count 235 K/mcL (140-400); Red Cell Distribution Width 14.4 % (11.5-14.5); White Blood Count 8.2 K/mcL (4.3-11.1)
[2021-02-11 07:11] LABS: Calcium 8.3 mg/dL (8.6-10.3); Potassium 4.4 mEq/L (3.5-5.1)
[2021-02-11] MEDS: Sennosides/Docusate Sodium TABLET PO SCH ×2 (07:41→21:43)
[2021-02-11] MEDS: Cyanocobalamin (B-12) 1,000 MCG TABLET PO SCH (07:43)
[2021-02-11] MEDS: Loratadine 10 MG TABLET PO SCH (07:43)
[2021-02-11] MEDS: Isosorbide MONOnitrate (24 HR) 30 MG TAB.ER.24H PO SCH (07:43)
[2021-02-11] MEDS: Budesonide/Formoterol 160/4.5 1 PUFF INH IH SCH ×2 (08:50→20:51)
[2021-02-11] MEDS: ALPRAZolam 1 MG TABLET PO SCH ×3 (11:48→21:43)
[2021-02-11] MEDS ORDERED: methylPREDNISolone 125 MG/2 ML VIAL IVP ONE (15:50)
[2021-02-12] MEDS: Ipratropium/Albuterol Neb 3 ML IH SCH ×4 (04:09→22:35)
[2021-02-12] MEDS: MethylPREDNISolone 40 MG/ML VIAL IVP SCH ×2 (06:09→18:00)
[2021-02-12] MEDS: Piperacillin/Tazobactam 3.375 GM in 0.9 % Sodium Chloride Mini Bag 100 ML IVPB SCH (06:09)
[2021-02-12] MEDS: Loratadine 10 MG TABLET PO SCH (09:55)
[2021-02-12] MEDS: *HR* OxyCODONE Immed Rel 5 MG TABLET PO PRN ×3 (09:55→22:47)
[2021-02-12] MEDS: Isosorbide MONOnitrate (24 HR) 30 MG TAB.ER.24H PO SCH (09:55)
[2021-02-12] MEDS: ALPRAZolam 1 MG TABLET PO SCH ×3 (09:56→21:00)
[2021-02-12] MEDS: Cyanocobalamin (B-12) 1,000 MCG TABLET PO SCH (09:56)
[2021-02-12] MEDS: Sennosides/Docusate Sodium TABLET PO SCH ×2 (09:56→22:12)
[2021-02-12] MEDS: Budesonide/Formoterol 160/4.5 1 PUFF INH IH SCH ×2 (10:47→22:35)
[2021-02-12 14:24] LABS: Hematocrit 32.1 % (35.3-44.9); Hemoglobin 10.2 g/dL (11.5-15.4); Mean Corpuscular HGB Conc 31.8 g/dL (31.6-35.5); Mean Corpuscular Hemoglobin 29.8 pg (28.0-33.3); Mean Corpuscular Volume 93.9 fL (83.0-100.0); Mean Platelet Volume 11.8 fL (9.4-12.4); Platelet Count 326 K/mcL (140-400); Red Blood Count 3.42 M/mcL (3.82-4.97); Red Cell Distribution Width 14.4 % (11.5-14.5)
[2021-02-12 14:43] LABS: White Blood Count 13.2 K/mcL (4.3-11.1)
[2021-02-12 14:59] LABS: Calcium 8.7 mg/dL (8.6-10.3); Potassium 4.4 mEq/L (3.5-5.1)
[2021-02-12] MEDS: Amoxicillin/Clavulanate 500 MG TABLET PO SCH (18:00)
[2021-02-12] MEDS: polyethylene glycoL 3350 17 GM POWD.PACK PO PRN (18:09)
[2021-02-13] MEDS: Ipratropium/Albuterol Neb 3 ML IH SCH ×4 (04:24→21:57)
[2021-02-13 06:46] LABS: Hematocrit 27.6 % (35.3-44.9); Mean Corpuscular HGB Conc 30.8 g/dL (31.6-35.5); Mean Corpuscular Hemoglobin 28.7 pg (28.0-33.3); Mean Corpuscular Volume 93.2 fL (83.0-100.0); Mean Platelet Volume 11.6 fL (9.4-12.4); Platelet Count 242 K/mcL (140-400); Red Blood Count 2.96 M/mcL (3.82-4.97); Red Cell Distribution Width 14.4 % (11.5-14.5); White Blood Count 10.5 K/mcL (4.3-11.1)
[2021-02-13 06:48] LABS: Hemoglobin 8.5 g/dL (11.5-15.4)
[2021-02-13 07:05] LABS: Calcium 8.6 mg/dL (8.6-10.3); Potassium 4.6 mEq/L (3.5-5.1)
[2021-02-13] MEDS: MethylPREDNISolone 40 MG/ML VIAL IVP SCH ×2 (07:24→17:16)
[2021-02-13] MEDS: Sennosides/Docusate Sodium TABLET PO SCH ×2 (07:25→19:58)
[2021-02-13] MEDS: Amoxicillin/Clavulanate 500 MG TABLET PO SCH (07:25)
[2021-02-13] MEDS: Cyanocobalamin (B-12) 1,000 MCG TABLET PO SCH (07:26)
[2021-02-13] MEDS: Isosorbide MONOnitrate (24 HR) 30 MG TAB.ER.24H PO SCH (07:26)
[2021-02-13] MEDS: Loratadine 10 MG TABLET PO SCH (07:26)
[2021-02-13] MEDS: ALPRAZolam 1 MG TABLET PO SCH ×3 (07:26→19:59)
[2021-02-13] MEDS: Budesonide/Formoterol 160/4.5 1 PUFF INH IH SCH ×2 (08:15→21:59)
[2021-02-13] MEDS: *HR* OxyCODONE Immed Rel 5 MG TABLET PO PRN (16:02)
[2021-02-13 16:30] LABS: Basophils % 0.2 %; Immature Granulocytes % 1.9 % (0-4); Lymphocytes # 1.2 K/mcL (0.6-4.6); Mean Corpuscular HGB Conc 31.6 g/dL (31.6-35.5); Mean Corpuscular Hemoglobin 29.8 pg (28.0-33.3); Mean Corpuscular Volume 94.4 fL (83.0-100.0); Mean Platelet Volume 11.5 fL (9.4-12.4); Neutrophils # 10.6 K/mcL (1.6-8.9); Platelet Count 295 K/mcL (140-400); Red Blood Count 3.39 M/mcL (3.82-4.97); Red Cell Distribution Width 14.6 % (11.5-14.5); Segmented Neutrophils % 80.9 %
[2021-02-13 16:31] LABS: Hemoglobin 10.1 g/dL (11.5-15.4)
[2021-02-13] MEDS: Venlafaxine XR (24 HR) 75 MG CAP.ER.24H PO SCH (17:18)
[2021-02-13] MEDS: metroNIDAZOLE 500 MG TABLET PO SCH (19:59)
[2021-02-14 03:31] LABS: Mean Corpuscular Volume 94.9 fL (83.0-100.0)
[2021-02-14 03:33] LABS: Basophils % 0.2 %; Eosinophils % 0.3 %; Hematocrit 27.7 % (35.3-44.9); Hemoglobin 8.7 g/dL (11.5-15.4); Immature Granulocytes % 1.4 % (0-4); Immature Platelets 8.3 % (1.1-6.1); Lymphocytes % 10.7 %; Mean Corpuscular HGB Conc 31.4 g/dL (31.6-35.5); Mean Corpuscular Hemoglobin 29.8 pg (28.0-33.3); Mean Platelet Volume 12.2 fL (9.4-12.4); Monocytes # 0.7 K/mcL (0.0-1.3); Monocytes % 7.2 %; Neutrophils # 7.5 K/mcL (1.6-8.9); Platelet Count 235 K/mcL (140-400); Red Blood Count 2.92 M/mcL (3.82-4.97); Red Cell Distribution Width 14.6 % (11.5-14.5); Segmented Neutrophils % 80.2 %; White Blood Count 9.4 K/mcL (4.3-11.1)
[2021-02-14 03:55] LABS: Calcium 8.2 mg/dL (8.6-10.3); Potassium 5.2 mEq/L (3.5-5.1)
[2021-02-14] MEDS: Ipratropium/Albuterol Neb 3 ML IH SCH ×3 (04:04→15:56)
[2021-02-14] MEDS: MethylPREDNISolone 40 MG/ML VIAL IVP SCH (05:42)
[2021-02-14] MEDS: Sennosides/Docusate Sodium TABLET PO SCH (08:38)
[2021-02-14] MEDS: metroNIDAZOLE 500 MG TABLET PO SCH ×2 (08:38→16:18)
[2021-02-14] MEDS: Isosorbide MONOnitrate (24 HR) 30 MG TAB.ER.24H PO SCH (08:38)
[2021-02-14] MEDS: ALPRAZolam 1 MG TABLET PO SCH ×2 (08:39→16:32)
[2021-02-14] MEDS: Loratadine 10 MG TABLET PO SCH (08:39)
[2021-02-14] MEDS: Cyanocobalamin (B-12) 1,000 MCG TABLET PO SCH (08:39)
[2021-02-14] MEDS: Venlafaxine XR (24 HR) 75 MG CAP.ER.24H PO SCH (08:45)
[2021-02-14] MEDS: Budesonide/Formoterol 160/4.5 1 PUFF INH IH SCH (10:45)
[2021-02-14 16:04] VITALS: BP 160/77; PULSE 61; TEMP 98.1; O2SAT 96
== END 2021-02-14 16:30 | disposition home health service (06) | DRG 443 ==
LOC: 3BNU 10:16 → INTRAD 10:16 → SUATTDRO 15:01 → 2NNU 02-08 03:25 → 3NENU 02-08 14:26
PROVIDERS: ADMIT Internal Medicine; ATTEND Internal Medicine

== ENCOUNTER 2021-03-10 05:34 | Observation (INO) ==
[2021-03-10] MEDS ORDERED: Ipratropium/Albuterol Neb 3 ML IH ONE (06:18)
[2021-03-10 07:05] LABS: VBG HCO3 24 mEq/L (21-27); VBG PCO2 51 mmHg (41-51); VBG PH 7.28 pH Units (7.32-7.42); VBG PO2 134 mmHg (25-50)
[2021-03-10 07:05] LABS: Basophils # 0.1 K/mcL (0.0-0.2); Basophils % 1.1 %; Eosinophils % 0.8 %; Hematocrit 36.3 % (35.3-44.9); Hemoglobin 11.3 g/dL (11.5-15.4); Immature Granulocytes % 0.2 % (0-4); Lymphocytes # 1.2 K/mcL (0.6-4.6); Mean Corpuscular HGB Conc 31.1 g/dL (31.6-35.5); Mean Corpuscular Hemoglobin 29.9 pg (28.0-33.3); Mean Platelet Volume 12.7 fL (9.4-12.4); Monocytes # 0.6 K/mcL (0.0-1.3); Monocytes % 11.5 %; Neutrophils # 3.4 K/mcL (1.6-8.9); Platelet Count 183 K/mcL (140-400); Red Blood Count 3.78 M/mcL (3.82-4.97); Red Cell Distribution Width 15.9 % (11.5-14.5); Segmented Neutrophils % 64.4 %; White Blood Count 5.3 K/mcL (4.3-11.1)
[2021-03-10 07:26] LABS: Calcium 9.2 mg/dL (8.6-10.3); Potassium 3.8 mEq/L (3.5-5.1)
[2021-03-10] MEDS ORDERED: ALPRAZolam 1 MG TABLET PO ONE (10:22)
[2021-03-10] MEDS ORDERED: Furosemide 40 MG/4 ML VIAL IVP ONE (11:20)
[2021-03-10] MEDS ORDERED: Melatonin 3 MG TABLET PO PRN (19:45)
[2021-03-10] MEDS ORDERED: Acetaminophen 325 MG TABLET PO PRN (19:45)
[2021-03-10] MEDS ORDERED: Naloxone 0.4 MG/ML INJ IVP PRN (19:45)
[2021-03-10] MEDS ORDERED: Ondansetron 4 MG/2 ML VIAL IVP PRN (19:45)
[2021-03-11] MEDS: levoFLOXacin 750 MG/150 ML 750 MG/150 ML BAG IVPB SCH (00:03)
[2021-03-11] MEDS: *HR* Heparin 5,000 UNIT/ML VIAL SQ SCH ×3 (00:03→14:45)
[2021-03-11] MEDS: ALPRAZolam 1 MG TABLET PO PRN ×2 (01:33→10:09)
[2021-03-11 03:07] LABS: Hematocrit 32.6 % (35.3-44.9); Hemoglobin 10.3 g/dL (11.5-15.4); Mean Corpuscular HGB Conc 31.6 g/dL (31.6-35.5); Mean Corpuscular Hemoglobin 30.5 pg (28.0-33.3); Mean Corpuscular Volume 96.4 fL (83.0-100.0); Mean Platelet Volume 12.6 fL (9.4-12.4); Platelet Count 156 K/mcL (140-400); Red Blood Count 3.38 M/mcL (3.82-4.97); Red Cell Distribution Width 15.7 % (11.5-14.5); White Blood Count 4.3 K/mcL (4.3-11.1)
[2021-03-11 03:26] LABS: Calcium 9.2 mg/dL (8.6-10.3); Potassium 3.7 mEq/L (3.5-5.1)
[2021-03-11] MEDS: Ipratropium/Albuterol Neb 3 ML IH PRN ×3 (07:48→17:57)
[2021-03-11] MEDS ORDERED: Nitroglycerin 0.4 MG TAB.SUBL SL PRN (16:09)
[2021-03-11] MEDS ORDERED: *HR* LORazepam 2 MG/ML VIAL IVP STA (18:03)
[2021-03-11] MEDS ORDERED: Potassium Chloride Elixir 20 MEQ/15 ML UDC PO ONE (18:06)
[2021-03-11] MEDS: Budesonide/Formoterol 160/4.5 1 PUFF INH IH SCH (19:37)
[2021-03-11] MEDS ORDERED: *HR* LORazepam 2 MG/ML VIAL ONE (23:30)
[2021-03-11] MEDS ORDERED: *HR* EPINEPHrine 1 MG/10 ML SYRINGE IVP ONE (23:30)
[2021-03-11] MEDS ORDERED: *HR* LORazepam 2 MG/ML VIAL IVP ONE (23:32)
[2021-03-12] MEDS ORDERED: Morphine Sulfate 2 MG/ML SYRINGE IVP ONE (01:35)
[2021-03-12] MEDS: Dexmedetomidine HCl 400 MCG/100 ML MLS IVC SCH (01:51)
[2021-03-12] MEDS: *HR* Heparin 5,000 UNIT/ML VIAL SQ SCH (01:51)
[2021-03-12] MEDS: Norepinephrine 4 MG/254 ML IV.SOLN IVC SCH ×2 (02:54→13:48)
[2021-03-12 03:57] LABS: ABG Base Excess -2 mEq/L (-2 to 3); ABG HCO3 23 mEq/L (21-27); ABG Oxygen Saturation 100 % (95-98); ABG PCO2 36 mmHg (35-45); ABG PH 7.41 pH Units (7.32-7.45); ABG PO2 261 mmHg (85-104); ABG TCO2 24 mEq/L (20-26); Blood Gas VT 480 cc
[2021-03-12 04:36] LABS: Hematocrit 34.3 % (35.3-44.9); Hemoglobin 11.2 g/dL (11.5-15.4); Mean Corpuscular HGB Conc 32.7 g/dL (31.6-35.5); Mean Corpuscular Hemoglobin 31.2 pg (28.0-33.3); Mean Corpuscular Volume 95.5 fL (83.0-100.0); Mean Platelet Volume 12.6 fL (9.4-12.4); Platelet Count 193 K/mcL (140-400); Red Blood Count 3.59 M/mcL (3.82-4.97); Red Cell Distribution Width 15.3 % (11.5-14.5)
[2021-03-12 04:41] LABS: White Blood Count 9.3 K/mcL (4.3-11.1)
[2021-03-12 04:43] LABS: INR 1.1; Prothrombin Time 12.7 Seconds (9.4-12.1)
[2021-03-12] MEDS: ALPRAZolam 1 MG TABLET PO PRN ×2 (04:48→20:09)
[2021-03-12 05:03] LABS: Calcium 9.4 mg/dL (8.6-10.3); Magnesium 2.4 mg/dL (1.6-2.6); Troponin I 0.5 ng/mL (< 0.04)
[2021-03-12] MEDS ORDERED: *HR* Heparin 5,000 UNIT/ML VIAL IVP PRN (05:06)
[2021-03-12] MEDS ORDERED: *HR* Heparin 5,000 UNIT/ML VIAL IVP ONE (05:06)
[2021-03-12] MEDS: Heparin 25,000UNIT/250ML 1/2NS 25,000 UNIT/250 ML IV.SOLN IVC SCH (06:51)
[2021-03-12] MEDS: FentaNYL (PF) 1,000 MCG/100 ML IV.SOLN IVC SCH ×2 (07:26→20:09)
[2021-03-12] MEDS: Isosorbide MONOnitrate (24 HR) 30 MG TAB.ER.24H PO SCH (07:42)
[2021-03-12] MEDS: Aspirin 81 MG TAB.CHEW PO SCH (07:42)
[2021-03-12] MEDS: Loratadine 10 MG TABLET PO SCH (07:42)
[2021-03-12] MEDS: Budesonide/Formoterol 160/4.5 1 PUFF INH IH SCH ×2 (08:04→19:51)
[2021-03-12] MEDS ORDERED: Perflutren Lipid Microsphere 1.3 ML in 0.9 % Sodium Chloride 8.7 ML IVP PRN (11:33)
[2021-03-12] MEDS ORDERED: Vancomycin 1 EACH in 0.9 % Sodium Chloride 250 ML IVPB PRN (16:00)
[2021-03-12] MEDS ORDERED: Vancomycin 1,500 MG/265 ML IV.SOLN IVPB ONE (16:45)
[2021-03-12] MEDS: Piperacillin/Tazobactam 3.375 GM in 0.9 % Sodium Chloride Mini Bag 100 ML IVPB SCH (16:47)
[2021-03-12] MEDS: levoFLOXacin 750 MG/150 ML 750 MG/150 ML BAG IVPB SCH (20:11)
[2021-03-12 23:56] LABS: Amorphous Sediment,Urine Few per hpf (None-Few); Bilirubin,Urine Negative (Negative); Blood,Urine Large (Negative); Clarity,Urine Turbid (Clear); Color,Urine Yellow (Yellow); Glucose,Urine (UA) 50 mg/dL (Normal); Hyaline Casts,Urine Few per lpf (None Seen); Ketones,Urine Negative (Negative); Leukocyte Esterase,Urine Trace (Negative); Mucus,Urine Few per lpf (None-Few); Nitrite,Urine Negative (Negative); PH,Urine 5.5 pH Units (5.0-8.0); Protein,Urine 100 mg/dL (Neg-Trace); RBC,Urine 15-30 per hpf (0-3); Specific Gravity,Urine 1.024 (1.010-1.025); Squamous Epithelial Cell,Urine Few per hpf (None-Few); Urobilinogen,Urine Normal (Normal)
[2021-03-13] MEDS: Piperacillin/Tazobactam 3.375 GM in 0.9 % Sodium Chloride Mini Bag 100 ML IVPB SCH ×3 (00:13→16:42)
[2021-03-13] MEDS: Norepinephrine 4 MG/254 ML IV.SOLN IVC SCH ×2 (01:30→09:12)
[2021-03-13] MEDS: ALPRAZolam 1 MG TABLET PO PRN ×2 (05:31→18:01)
[2021-03-13 06:55] LABS: Basophils # 0.1 K/mcL (0.0-0.2); Eosinophils % 0.5 %; Hematocrit 30.8 % (35.3-44.9); Immature Granulocytes % 0.3 % (0-4); Lymphocytes # 1.4 K/mcL (0.6-4.6); Lymphocytes % 15.9 %; Mean Corpuscular HGB Conc 31.2 g/dL (31.6-35.5); Mean Corpuscular Hemoglobin 30.6 pg (28.0-33.3); Mean Corpuscular Volume 98.1 fL (83.0-100.0); Mean Platelet Volume 12.1 fL (9.4-12.4); Monocytes # 1.1 K/mcL (0.0-1.3); Monocytes % 12.9 %; Neutrophils # 6.1 K/mcL (1.6-8.9); Platelet Count 163 K/mcL (140-400); Red Blood Count 3.14 M/mcL (3.82-4.97); Red Cell Distribution Width 15.9 % (11.5-14.5); Segmented Neutrophils % 69.4 %; White Blood Count 8.7 K/mcL (4.3-11.1)
[2021-03-13 06:58] LABS: Hemoglobin 9.6 g/dL (11.5-15.4)
[2021-03-13 07:02] LABS: VBG Ionized Calcium 1.26 mmol/L (1.15-1.35)
[2021-03-13 07:19] LABS: Calcium 8.7 mg/dL (8.6-10.3); Magnesium 2.1 mg/dL (1.6-2.6); Phosphorous 3.6 mg/dL (2.7-4.5); Potassium 5.2 mEq/L (3.5-5.1)
[2021-03-13] MEDS: Dexmedetomidine HCl 400 MCG/100 ML MLS IVC SCH (08:16)
[2021-03-13] MEDS: Loratadine 10 MG TABLET PO SCH (09:09)
[2021-03-13] MEDS: Isosorbide MONOnitrate (24 HR) 30 MG TAB.ER.24H PO SCH (09:10)
[2021-03-13] MEDS: Aspirin 81 MG TAB.CHEW PO SCH (09:11)
[2021-03-13] MEDS: FentaNYL (PF) 1,000 MCG/100 ML IV.SOLN IVC SCH (09:13)
[2021-03-13] MEDS: Heparin 25,000UNIT/250ML 1/2NS 25,000 UNIT/250 ML IV.SOLN IVC SCH (09:39)
[2021-03-13] MEDS ORDERED: Albumin Human 5% 12.5 GM/250 ML IV.SOLN IVC ONE (10:20)
[2021-03-13] MEDS: Budesonide/Formoterol 160/4.5 1 PUFF INH IH SCH ×2 (10:48→19:49)
[2021-03-13] MEDS: Albumin Human 5% 12.5 GM/250 ML IV.SOLN IVC SCH ×4 (10:54→23:40)
[2021-03-13] MEDS ORDERED: Vancomycin 500 MG in 0.9 % Sodium Chloride Mini Bag 100 ML IVPB ONE (18:04)
[2021-03-14] MEDS: Piperacillin/Tazobactam 3.375 GM in 0.9 % Sodium Chloride Mini Bag 100 ML IVPB SCH ×3 (00:30→16:26)
[2021-03-14] MEDS: Norepinephrine 4 MG/254 ML IV.SOLN IVC SCH ×5 (01:45→20:18)
[2021-03-14] MEDS: Heparin 25,000UNIT/250ML 1/2NS 25,000 UNIT/250 ML IV.SOLN IVC SCH (06:49)
[2021-03-14] MEDS: *HR* Heparin 5,000 UNIT/ML VIAL IVP PRN ×2 (06:50→13:13)
[2021-03-14] MEDS: Budesonide/Formoterol 160/4.5 1 PUFF INH IH SCH ×2 (08:36→21:24)
[2021-03-14] MEDS: Aspirin 81 MG TAB.CHEW PO SCH (08:50)
[2021-03-14] MEDS: Isosorbide MONOnitrate (24 HR) 30 MG TAB.ER.24H PO SCH (08:50)
[2021-03-14] MEDS: Loratadine 10 MG TABLET PO SCH (08:50)
[2021-03-14] MEDS: ALPRAZolam 1 MG TABLET PO PRN (09:03)
[2021-03-14 10:32] LABS: Eosinophils % 1.3 %; Immature Granulocytes % 0.2 % (0-4)
[2021-03-14 10:34] LABS: Basophils # 0.1 K/mcL (0.0-0.2); Basophils % 1.1 %; Eosinophils # 0.1 K/mcL (0.0-0.6); Hematocrit 27.4 % (35.3-44.9); Hemoglobin 8.2 g/dL (11.5-15.4); Lymphocytes # 0.6 K/mcL (0.6-4.6); Lymphocytes % 13.2 %; Mean Corpuscular HGB Conc 29.9 g/dL (31.6-35.5); Mean Corpuscular Hemoglobin 29.9 pg (28.0-33.3); Mean Platelet Volume 11.6 fL (9.4-12.4); Monocytes # 0.7 K/mcL (0.0-1.3); Monocytes % 14.6 %; Neutrophils # 3.1 K/mcL (1.6-8.9); Red Blood Count 2.74 M/mcL (3.82-4.97); Red Cell Distribution Width 15.8 % (11.5-14.5); Segmented Neutrophils % 69.6 %; White Blood Count 4.5 K/mcL (4.3-11.1)
[2021-03-14 10:45] LABS: Platelet Count 91 K/mcL (140-400)
[2021-03-14 10:51] LABS: Magnesium 2.1 mg/dL (1.6-2.6); Potassium 4.6 mEq/L (3.5-5.1)
[2021-03-14] MEDS ORDERED: Vancomycin 500 MG in 0.9 % Sodium Chloride Mini Bag 100 ML IVPB ONE (14:00)
[2021-03-14] MEDS: FentaNYL (PF) 1,000 MCG/100 ML IV.SOLN IVC SCH ×2 (15:22→18:13)
[2021-03-14] MEDS ORDERED: Naloxone 0.4 MG/ML INJ IVP PRN (17:35)
[2021-03-14] MEDS ORDERED: Melatonin 3 MG TABLET PO PRN (17:35)
[2021-03-14] MEDS ORDERED: Acetaminophen 325 MG TABLET PO PRN (17:35)
[2021-03-14] MEDS ORDERED: Ipratropium/Albuterol Neb 3 ML IH PRN (17:35)
[2021-03-14] MEDS ORDERED: Nitroglycerin 0.4 MG TAB.SUBL SL PRN (17:35)
[2021-03-14] MEDS ORDERED: Ondansetron 4 MG/2 ML VIAL IVP PRN (17:35)
[2021-03-14] MEDS ORDERED: Vancomycin 1 EACH in 0.9 % Sodium Chloride 250 ML IVPB PRN (17:35)
[2021-03-14] MEDS ORDERED: levoFLOXacin 750 MG/150 ML 750 MG/150 ML BAG IVPB SCH (19:00)
[2021-03-15] MEDS: Piperacillin/Tazobactam 3.375 GM in 0.9 % Sodium Chloride Mini Bag 100 ML IVPB SCH ×3 (00:31→15:02)
[2021-03-15] MEDS: ALPRAZolam 1 MG TABLET PO PRN ×2 (02:03→15:11)
[2021-03-15 06:38] LABS: Basophils # 0.1 K/mcL (0.0-0.2); Basophils % 0.7 %; Eosinophils # 0.1 K/mcL (0.0-0.6); Hematocrit 27.8 % (35.3-44.9); Hemoglobin 8.4 g/dL (11.5-15.4); Immature Granulocytes % 0.4 % (0-4); Lymphocytes # 0.8 K/mcL (0.6-4.6); Lymphocytes % 10.7 %; Mean Corpuscular HGB Conc 30.2 g/dL (31.6-35.5); Mean Corpuscular Hemoglobin 30.3 pg (28.0-33.3); Mean Corpuscular Volume 100.4 fL (83.0-100.0); Mean Platelet Volume 12.2 fL (9.4-12.4); Monocytes # 1.1 K/mcL (0.0-1.3); Neutrophils # 5.6 K/mcL (1.6-8.9); Platelet Count 104 K/mcL (140-400); Red Blood Count 2.77 M/mcL (3.82-4.97); Red Cell Distribution Width 15.7 % (11.5-14.5); Segmented Neutrophils % 73.2 %
[2021-03-15 06:39] LABS: White Blood Count 7.7 K/mcL (4.3-11.1)
[2021-03-15 06:54] LABS: Calcium 8.8 mg/dL (8.6-10.3)
[2021-03-15] MEDS: Norepinephrine 4 MG/254 ML IV.SOLN IVC SCH (07:59)
[2021-03-15] MEDS ORDERED: Vancomycin 500 MG in 0.9 % Sodium Chloride Mini Bag 100 ML IVPB ONE (08:00)
[2021-03-15] MEDS ORDERED: Loratadine 10 MG TABLET PO SCH (09:00)
[2021-03-15] MEDS ORDERED: Isosorbide MONOnitrate (24 HR) 30 MG TAB.ER.24H PO SCH (09:00)
[2021-03-15] MEDS ORDERED: Aspirin 81 MG TAB.CHEW PO SCH (09:00)
[2021-03-15] MEDS: Albumin Human 5% 12.5 GM/250 ML IV.SOLN IVC SCH ×2 (11:15→15:04)
[2021-03-15] MEDS: Budesonide/Formoterol 160/4.5 1 PUFF INH IH SCH (11:38)
[2021-03-15] MEDS: FentaNYL (PF) 1,000 MCG/100 ML IV.SOLN IVC SCH (13:17)
[2021-03-15] MEDS ORDERED: *HR* Heparin 5,000 UNIT/ML VIAL SQ SCH (14:00)
[2021-03-15 15:55] VITALS: TEMP 98.6
[2021-03-15 18:09] VITALS: BP 130/47; PULSE 81; O2SAT 100
== END 2021-03-15 19:25 | disposition short-term general hospital (02) ==
LOC: 2NNU 05:34 → EMEROOARM 05:34 → SUATTDRO 18:33 → 2NNU 19:53
PROVIDERS: ADMIT Internal Medicine; ATTEND Pediatrics

== ENCOUNTER 2021-05-07 21:30 | Inpatient (IN) ==
[2021-05-07] MEDS ORDERED: Albuterol 2.5 MG/3 ML NEBULIZER IH ONE (21:32)
[2021-05-07] MEDS ORDERED: Ipratropium/Albuterol Neb 3 ML IH ONE (21:32)
[2021-05-07] MEDS ORDERED: 0.9 % Sodium Chloride 500 ML IVC ONE ×2 (21:57→23:07)
[2021-05-07] MEDS ORDERED: 0.9 % Sodium Chloride 500 ML ONE (21:58)
[2021-05-07 22:17] LABS: Basophils % 0.5 %; Hematocrit 29.6 % (35.3-44.9); Hemoglobin 9.7 g/dL (11.5-15.4); Immature Granulocytes % 0.5 % (0-4); Immature Platelets 5.8 % (1.1-6.1); Lymphocytes # 0.5 K/mcL (0.6-4.6); Lymphocytes % 22.7 %; Mean Corpuscular HGB Conc 32.8 g/dL (31.6-35.5); Mean Corpuscular Hemoglobin 30.5 pg (28.0-33.3); Mean Corpuscular Volume 93.1 fL (83.0-100.0); Mean Platelet Volume 12.3 fL (9.4-12.4); Monocytes # 0.3 K/mcL (0.0-1.3); Neutrophils # 1.4 K/mcL (1.6-8.9); Red Blood Count 3.18 M/mcL (3.82-4.97); Red Cell Distribution Width 14.6 % (11.5-14.5); Segmented Neutrophils % 64.3 %; White Blood Count 2.2 K/mcL (4.3-11.1)
[2021-05-07 22:18] LABS: Platelet Count 91 K/mcL (140-400)
[2021-05-07 22:33] LABS: Alanine Aminotransferase 9 Units/L (7-52); Albumin 3.4 g/dL (3.5-5.7); Albumin/Globulin Ratio 1.1 (1.1-2.2); Alkaline Phosphatase 50 Units/L (34-104); Aspartate Amino Transferase 20 Units/L (13-39); BUN/Creatinine Ratio 13 (6-26); Bilirubin,Direct 0.1 mg/dL (0.0-0.2); Bilirubin,Indirect 0.1 mg/dL (0.0-1.0); Bilirubin,Total 0.2 mg/dL (0.3-1.0); Blood Urea Nitrogen 33 mg/dL (8-23); Calcium 8.1 mg/dL (8.6-10.3); Carbon Dioxide 20 mEq/L (23-29); Chloride 102 mEq/L (98-107); Globulin 3.1 g/dL (2.4-3.5); Glucose 131 mg/dL (70-105); Osmolality,Calculated 279 (280-300); Potassium 3.7 mEq/L (3.5-5.1); Sodium 130 mEq/L (136-145); Total Protein 6.5 g/dL (6.4-8.9); Troponin I < 0.03 ng/mL (< 0.04); eGFR For African Americans 23 (> 60); eGFR For Non-African Americans 19 (> 60)
[2021-05-07] MEDS ORDERED: Ondansetron 4 MG/2 ML VIAL IVP ONE (22:34)
[2021-05-07 23:10] LABS: Influenza A PCR Negative (Negative); Influenza B PCR Negative (Negative); Resp. Syncytial Virus PCR Negative (Negative)
[2021-05-07 23:20] LABS: SARS-CoV-2 by PCR (In House) Positive (Negative)
[2021-05-07 23:33] LABS: Bilirubin,Urine Negative (Negative); Blood,Urine Trace (Negative); Clarity,Urine Clear (Clear); Color,Urine Light-Yellow (Yellow); Glucose,Urine (UA) Normal (Normal); Ketones,Urine Negative (Negative); Leukocyte Esterase,Urine Negative (Negative); Nitrite,Urine Negative (Negative); Protein,Urine >=300 mg/dL (Neg-Trace); RBC,Urine 0-3 per hpf (0-3); Specific Gravity,Urine 1.012 (1.010-1.025); Squamous Epithelial Cell,Urine Few per hpf (None-Few); Urobilinogen,Urine Normal (Normal); WBC,Urine 0-3 per hpf (0-3)
[2021-05-08] MEDS ORDERED: Azithromycin 250 MG TABLET PO ONE (00:28)
[2021-05-08] MEDS ORDERED: Melatonin 3 MG TABLET PO PRN (02:23)
[2021-05-08] MEDS ORDERED: Naloxone 0.4 MG/ML INJ IVP PRN (02:23)
[2021-05-08] MEDS: cefTRIAXone 1,000 MG in 0.9 % Sodium Chloride Mini Bag 100 ML IVPB SCH (03:31)
[2021-05-08] MEDS ORDERED: Budesonide/Formoterol 160/4.5 1 PUFF INH IH ONE (03:35)
[2021-05-08 04:58] LABS: Immature Granulocytes % 0.7 % (0-4); Mean Corpuscular Hemoglobin 31.1 pg (28.0-33.3); Red Blood Count 2.89 M/mcL (3.82-4.97); Red Cell Distribution Width 14.6 % (11.5-14.5)
[2021-05-08 05:00] LABS: Hematocrit 27.6 % (35.3-44.9); Immature Platelets 5.7 % (1.1-6.1); Lymphocytes # 0.2 K/mcL (0.6-4.6); Lymphocytes % 14.6 %; Mean Corpuscular HGB Conc 32.6 g/dL (31.6-35.5); Mean Corpuscular Volume 95.5 fL (83.0-100.0); Mean Platelet Volume 12.2 fL (9.4-12.4); Monocytes # 0.1 K/mcL (0.0-1.3); Monocytes % 6.6 %; Neutrophils # 1.2 K/mcL (1.6-8.9); Segmented Neutrophils % 78.1 %; White Blood Count 1.5 K/mcL (4.3-11.1)
[2021-05-08 05:04] LABS: Platelet Count 83 K/mcL (140-400)
[2021-05-08 05:19] LABS: Albumin 3.2 g/dL (3.5-5.7); Albumin/Globulin Ratio 1.2 (1.1-2.2); Bilirubin,Total 0.2 mg/dL (0.3-1.0); Calcium 7.7 mg/dL (8.6-10.3); Globulin 2.7 g/dL (2.4-3.5); Magnesium 1.7 mg/dL (1.6-2.6); Phosphorous 3.2 mg/dL (2.7-4.5); Potassium 4.4 mEq/L (3.5-5.1); Total Protein 5.9 g/dL (6.4-8.9)
[2021-05-08 05:38] LABS: Platelet Estimate Decreased (Normal)
[2021-05-08] MEDS ORDERED: *HR* Heparin 5,000 UNIT/ML VIAL SQ SCH (06:00)
[2021-05-08] MEDS: Budesonide/Formoterol 160/4.5 1 PUFF INH IH SCH ×2 (08:13→20:55)
[2021-05-08] MEDS: Cyanocobalamin (B-12) 1,000 MCG TABLET PO SCH (09:42)
[2021-05-08] MEDS: Loratadine 10 MG TABLET PO SCH (09:42)
[2021-05-08] MEDS: Aspirin 81 MG TAB.CHEW PO SCH (09:42)
[2021-05-08] MEDS: ALPRAZolam 1 MG TABLET PO SCH (21:05)
[2021-05-09] MEDS: Azithromycin 500 MG in 0.9 % Sodium Chloride 250 ML IVPB SCH (00:08)
[2021-05-09] MEDS: cefTRIAXone 1,000 MG in 0.9 % Sodium Chloride Mini Bag 100 ML IVPB SCH (09:18)
[2021-05-09] MEDS: Cyanocobalamin (B-12) 1,000 MCG TABLET PO SCH (09:18)
[2021-05-09] MEDS: ALPRAZolam 1 MG TABLET PO SCH ×3 (09:18→20:52)
[2021-05-09] MEDS: Aspirin 81 MG TAB.CHEW PO SCH (09:19)
[2021-05-09] MEDS: Loratadine 10 MG TABLET PO SCH (09:19)
[2021-05-09] MEDS: Budesonide/Formoterol 160/4.5 1 PUFF INH IH SCH ×2 (09:22→20:12)
[2021-05-10] MEDS: Azithromycin 500 MG in 0.9 % Sodium Chloride 250 ML IVPB SCH ×2 (00:26→23:47)
[2021-05-10 03:02] LABS: Basophils % 0.3 %; Hematocrit 31.1 % (35.3-44.9); Hemoglobin 9.6 g/dL (11.5-15.4); Immature Granulocytes % 0.5 % (0-4); Lymphocytes # 0.5 K/mcL (0.6-4.6); Lymphocytes % 14.2 %; Mean Corpuscular HGB Conc 30.9 g/dL (31.6-35.5); Mean Corpuscular Hemoglobin 30.8 pg (28.0-33.3); Mean Corpuscular Volume 99.7 fL (83.0-100.0); Mean Platelet Volume 11.9 fL (9.4-12.4); Monocytes # 0.4 K/mcL (0.0-1.3); Platelet Count 104 K/mcL (140-400); Red Blood Count 3.12 M/mcL (3.82-4.97)
[2021-05-10 03:15] LABS: Neutrophils # 2.9 K/mcL (1.6-8.9); White Blood Count 3.8 K/mcL (4.3-11.1)
[2021-05-10 03:21] LABS: Calcium 8.1 mg/dL (8.6-10.3); Potassium 4.2 mEq/L (3.5-5.1)
[2021-05-10 03:59] LABS: Platelet Estimate Slight Decrease (Normal)
[2021-05-10 04:00] LABS: Reactive Lymphocytes Present (Not Present)
[2021-05-10] MEDS: Budesonide/Formoterol 160/4.5 1 PUFF INH IH SCH ×2 (08:23→20:19)
[2021-05-10] MEDS: Loratadine 10 MG TABLET PO SCH (09:30)
[2021-05-10] MEDS: dexAMETHasone 4 MG TABLET PO SCH (09:30)
[2021-05-10] MEDS: ALPRAZolam 1 MG TABLET PO SCH ×3 (09:30→20:32)
[2021-05-10] MEDS: Cyanocobalamin (B-12) 1,000 MCG TABLET PO SCH (09:31)
[2021-05-10] MEDS: cefTRIAXone 1,000 MG in 0.9 % Sodium Chloride Mini Bag 100 ML IVPB SCH (09:31)
[2021-05-10] MEDS: Aspirin 81 MG TAB.CHEW PO SCH (09:31)
[2021-05-11 05:24] LABS: Calcium 8.3 mg/dL (8.6-10.3); Potassium 4.5 mEq/L (3.5-5.1)
[2021-05-11 05:29] LABS: Red Blood Count 3.02 M/mcL (3.82-4.97); Red Cell Distribution Width 14.9 % (11.5-14.5)
[2021-05-11 05:31] LABS: Hematocrit 29.4 % (35.3-44.9); Hemoglobin 9.3 g/dL (11.5-15.4); Immature Granulocytes % 1.1 % (0-4); Lymphocytes # 0.4 K/mcL (0.6-4.6); Lymphocytes % 14.6 %; Mean Corpuscular HGB Conc 31.6 g/dL (31.6-35.5); Mean Corpuscular Hemoglobin 30.8 pg (28.0-33.3); Mean Corpuscular Volume 97.4 fL (83.0-100.0); Monocytes # 0.3 K/mcL (0.0-1.3); Monocytes % 10.8 %; Platelet Count 126 K/mcL (140-400); Segmented Neutrophils % 73.5 %; White Blood Count 2.7 K/mcL (4.3-11.1)
[2021-05-11] MEDS: Benzonatate 100 MG CAPSULE PO PRN ×2 (05:58→20:04)
[2021-05-11 06:50] LABS: Platelet Estimate Slight Decrease (Normal); Reactive Lymphocytes Present (Not Present)
[2021-05-11] MEDS: Budesonide/Formoterol 160/4.5 1 PUFF INH IH SCH ×2 (07:58→23:48)
[2021-05-11] MEDS: dexAMETHasone 4 MG TABLET PO SCH (10:09)
[2021-05-11] MEDS: ALPRAZolam 1 MG TABLET PO SCH ×3 (10:09→20:04)
[2021-05-11] MEDS: Aspirin 81 MG TAB.CHEW PO SCH (10:09)
[2021-05-11] MEDS: Loratadine 10 MG TABLET PO SCH (10:09)
[2021-05-11] MEDS: Cyanocobalamin (B-12) 1,000 MCG TABLET PO SCH (10:09)
[2021-05-11] MEDS: cefTRIAXone 1,000 MG in 0.9 % Sodium Chloride Mini Bag 100 ML IVPB SCH (10:10)
[2021-05-12] MEDS: Azithromycin 500 MG in 0.9 % Sodium Chloride 250 ML IVPB SCH (00:28)
[2021-05-12 04:41] LABS: Immature Granulocytes % 0.9 % (0-4); Lymphocytes # 0.5 K/mcL (0.6-4.6); Lymphocytes % 22.2 %; Mean Corpuscular HGB Conc 32.3 g/dL (31.6-35.5); Mean Corpuscular Hemoglobin 31.3 pg (28.0-33.3); Mean Corpuscular Volume 96.9 fL (83.0-100.0); Mean Platelet Volume 11.8 fL (9.4-12.4); Monocytes # 0.3 K/mcL (0.0-1.3); Neutrophils # 1.4 K/mcL (1.6-8.9); Platelet Count 119 K/mcL (140-400); Red Cell Distribution Width 14.8 % (11.5-14.5); Segmented Neutrophils % 64.9 %; White Blood Count 2.2 K/mcL (4.3-11.1)
[2021-05-12 04:59] LABS: Calcium 8.6 mg/dL (8.6-10.3); Potassium 4.5 mEq/L (3.5-5.1)
[2021-05-12 05:10] LABS: Platelet Estimate Slight Decrease (Normal); Reactive Lymphocytes Present (Not Present)
[2021-05-12 09:13] VITALS: BP 127/73; PULSE 76
[2021-05-12] MEDS: Loratadine 10 MG TABLET PO SCH (10:07)
[2021-05-12] MEDS: Aspirin 81 MG TAB.CHEW PO SCH (10:07)
[2021-05-12] MEDS: ALPRAZolam 1 MG TABLET PO SCH ×2 (10:07→15:02)
[2021-05-12] MEDS: Cyanocobalamin (B-12) 1,000 MCG TABLET PO SCH (10:07)
[2021-05-12] MEDS: cefTRIAXone 1,000 MG in 0.9 % Sodium Chloride Mini Bag 100 ML IVPB SCH (10:08)
[2021-05-12] MEDS: dexAMETHasone 4 MG TABLET PO SCH (10:08)
[2021-05-12] MEDS: Budesonide/Formoterol 160/4.5 1 PUFF INH IH SCH (11:47)
[2021-05-12 12:12] VITALS: TEMP 97.6
[2021-05-12 16:21] VITALS: O2SAT 100
== END 2021-05-12 18:40 | disposition home health service (06) | DRG 137 ==
LOC: EMEROOARM 21:30 → 3NENU 21:30
PROVIDERS: ADMIT Student in an Organized Health Care Education/Training Program; ATTEND Student in an Organized Health Care Education/Training Program

== ENCOUNTER 2021-05-13 14:14 | Inpatient (IN) ==
[2021-05-13 15:18] LABS: Alanine Aminotransferase 20 Units/L (7-52); Albumin 3.6 g/dL (3.5-5.7); Alkaline Phosphatase 54 Units/L (34-104); Aspartate Amino Transferase 24 Units/L (13-39); BUN/Creatinine Ratio 27 (6-26); Bilirubin,Direct 0.1 mg/dL (0.0-0.2); Bilirubin,Indirect 0.3 mg/dL (0.0-1.0); Bilirubin,Total 0.4 mg/dL (0.3-1.0); Blood Urea Nitrogen 43 mg/dL (8-23); Calcium 9.3 mg/dL (8.6-10.3); Carbon Dioxide 19 mEq/L (23-29); Chloride 104 mEq/L (98-107); Globulin 3.6 g/dL (2.4-3.5); Glucose 166 mg/dL (70-105); Osmolality,Calculated 295 (280-300); Potassium 4.3 mEq/L (3.5-5.1); Sodium 135 mEq/L (136-145); Total Protein 7.2 g/dL (6.4-8.9); Troponin I < 0.03 ng/mL (< 0.04); eGFR For African Americans 40 (> 60); eGFR For Non-African Americans 33 (> 60)
[2021-05-13] MEDS ORDERED: Acetaminophen 325 MG TABLET PO ONE (16:16)
[2021-05-13 16:28] LABS: Hematocrit 32.6 % (35.3-44.9); Hemoglobin 10.8 g/dL (11.5-15.4); Immature Granulocytes % 1.6 % (0-4); Lymphocytes # 0.3 K/mcL (0.6-4.6); Lymphocytes % 9.1 %; Mean Corpuscular HGB Conc 33.1 g/dL (31.6-35.5); Mean Corpuscular Hemoglobin 30.9 pg (28.0-33.3); Mean Corpuscular Volume 93.4 fL (83.0-100.0); Mean Platelet Volume 11.7 fL (9.4-12.4); Monocytes # 0.2 K/mcL (0.0-1.3); Monocytes % 7.2 %; Neutrophils # 2.6 K/mcL (1.6-8.9); Platelet Count 141 K/mcL (140-400); Red Blood Count 3.49 M/mcL (3.82-4.97); Red Cell Distribution Width 14.6 % (11.5-14.5); Segmented Neutrophils % 82.1 %; White Blood Count 3.2 K/mcL (4.3-11.1)
[2021-05-13 16:57] LABS: Platelet Estimate Normal (Normal)
[2021-05-13] MEDS ORDERED: Naloxone 0.4 MG/ML INJ IVP PRN (18:19)
[2021-05-13] MEDS ORDERED: Ondansetron 4 MG/2 ML VIAL IVP PRN (18:19)
[2021-05-13] MEDS: Acetaminophen 325 MG TABLET PO PRN (21:06)
[2021-05-14 01:48] LABS: Basophils % 0.4 %; Hematocrit 31.3 % (35.3-44.9); Hemoglobin 10.3 g/dL (11.5-15.4); Immature Granulocytes % 1.4 % (0-4); Lymphocytes # 0.6 K/mcL (0.6-4.6); Lymphocytes % 22.7 %; Mean Corpuscular HGB Conc 32.9 g/dL (31.6-35.5); Mean Corpuscular Hemoglobin 30.7 pg (28.0-33.3); Mean Corpuscular Volume 93.4 fL (83.0-100.0); Mean Platelet Volume 11.3 fL (9.4-12.4); Monocytes # 0.4 K/mcL (0.0-1.3); Monocytes % 14.7 %; Neutrophils # 1.7 K/mcL (1.6-8.9); Platelet Count 158 K/mcL (140-400); Red Blood Count 3.35 M/mcL (3.82-4.97); Red Cell Distribution Width 14.5 % (11.5-14.5); Segmented Neutrophils % 60.8 %; White Blood Count 2.8 K/mcL (4.3-11.1)
[2021-05-14 01:59] LABS: Prothrombin Time 11.3 Seconds (9.4-12.1)
[2021-05-14 02:08] LABS: Potassium 4.1 mEq/L (3.5-5.1)
[2021-05-14] MEDS: ALPRAZolam 1 MG TABLET PO SCH ×4 (02:30→21:06)
[2021-05-14] MEDS: Acetaminophen 325 MG TABLET PO PRN (07:03)
[2021-05-15] MEDS: ALPRAZolam 1 MG TABLET PO SCH ×3 (08:24→19:25)
[2021-05-15] MEDS: Acetaminophen 325 MG TABLET PO PRN (08:24)
[2021-05-15 10:20] LABS: Hematocrit 32.7 % (35.3-44.9); Hemoglobin 10.5 g/dL (11.5-15.4); Lymphocytes # 0.7 K/mcL (0.6-4.6); Mean Corpuscular HGB Conc 32.1 g/dL (31.6-35.5); Mean Corpuscular Hemoglobin 30.3 pg (28.0-33.3); Mean Corpuscular Volume 94.2 fL (83.0-100.0); Mean Platelet Volume 11.8 fL (9.4-12.4); Monocytes # 0.3 K/mcL (0.0-1.3); Monocytes % 8.5 %; Platelet Count 169 K/mcL (140-400); Red Blood Count 3.47 M/mcL (3.82-4.97); Red Cell Distribution Width 14.5 % (11.5-14.5); Segmented Neutrophils % 68.5 %
[2021-05-15 10:23] LABS: Neutrophils # 2.1 K/mcL (1.6-8.9)
[2021-05-15 10:43] LABS: Anisocytosis 1+ (Not Present); Platelet Estimate Normal (Normal)
[2021-05-15 11:48] LABS: Calcium 8.9 mg/dL (8.6-10.3); Potassium 4.5 mEq/L (3.5-5.1)
[2021-05-15] MEDS: *HR* HYDROcodone/Acet 5/325 mg TABLET PO PRN (19:25)
[2021-05-15] MEDS ORDERED: *HR* Enoxaparin 40 MG/0.4 ML SYRINGE SQ SCH (21:00)
[2021-05-15] MEDS: *HR* Heparin 5,000 UNIT/ML VIAL SQ SCH (22:52)
[2021-05-16] MEDS: *HR* Heparin 5,000 UNIT/ML VIAL SQ SCH ×3 (05:49→21:53)
[2021-05-16] MEDS: Acetaminophen 325 MG TABLET PO PRN (05:53)
[2021-05-16] MEDS: ALPRAZolam 1 MG TABLET PO SCH ×3 (07:39→21:53)
[2021-05-17] MEDS: *HR* HYDROcodone/Acet 5/325 mg TABLET PO PRN ×2 (03:54→21:27)
[2021-05-17] MEDS: *HR* Heparin 5,000 UNIT/ML VIAL SQ SCH ×3 (05:52→21:28)
[2021-05-17] MEDS: ALPRAZolam 1 MG TABLET PO SCH ×3 (09:43→21:27)
[2021-05-17 20:11] LABS: Basophils % 0.2 %; Hematocrit 32.3 % (35.3-44.9); Hemoglobin 10.4 g/dL (11.5-15.4); Immature Granulocytes % 0.9 % (0-4); Immature Platelets 12.2 % (1.1-6.1); Lymphocytes # 0.8 K/mcL (0.6-4.6); Lymphocytes % 17.9 %; Mean Corpuscular HGB Conc 32.2 g/dL (31.6-35.5); Mean Corpuscular Hemoglobin 30.1 pg (28.0-33.3); Mean Corpuscular Volume 93.6 fL (83.0-100.0); Mean Platelet Volume 11.9 fL (9.4-12.4); Monocytes # 0.5 K/mcL (0.0-1.3); Monocytes % 10.2 %; Neutrophils # 3.1 K/mcL (1.6-8.9); Platelet Count 137 K/mcL (140-400); Red Blood Count 3.45 M/mcL (3.82-4.97); Red Cell Distribution Width 14.1 % (11.5-14.5); Segmented Neutrophils % 70.8 %; White Blood Count 4.4 K/mcL (4.3-11.1)
[2021-05-17 20:27] LABS: Calcium 8.9 mg/dL (8.6-10.3); Potassium 4.6 mEq/L (3.5-5.1)
[2021-05-18] MEDS: *HR* Heparin 5,000 UNIT/ML VIAL SQ SCH ×3 (04:54→20:38)
[2021-05-18] MEDS: ALPRAZolam 1 MG TABLET PO SCH ×3 (06:09→20:37)
[2021-05-18] MEDS: *HR* HYDROcodone/Acet 5/325 mg TABLET PO PRN ×2 (06:09→20:37)
[2021-05-19] MEDS: *HR* Heparin 5,000 UNIT/ML VIAL SQ SCH ×3 (05:10→21:04)
[2021-05-19] MEDS: ALPRAZolam 1 MG TABLET PO SCH ×3 (05:11→21:04)
[2021-05-19] MEDS: *HR* HYDROcodone/Acet 5/325 mg TABLET PO PRN (21:04)
[2021-05-20] MEDS: ALPRAZolam 1 MG TABLET PO SCH ×3 (04:47→20:27)
[2021-05-20] MEDS: *HR* HYDROcodone/Acet 5/325 mg TABLET PO PRN (04:47)
[2021-05-20] MEDS: *HR* Heparin 5,000 UNIT/ML VIAL SQ SCH ×3 (04:48→20:27)
[2021-05-20] MEDS: Dexamethasone Sodium Phos/PF 10 MG/ML VIAL IVP SCH (09:31)
[2021-05-20] MEDS ORDERED: Ibuprofen 600 MG TABLET PO ONE (13:47)
[2021-05-21] MEDS: *HR* Heparin 5,000 UNIT/ML VIAL SQ SCH ×2 (05:22→16:16)
[2021-05-21] MEDS: *HR* HYDROcodone/Acet 5/325 mg TABLET PO PRN ×2 (05:42→19:32)
[2021-05-21 09:30] LABS: Alanine Aminotransferase 32 Units/L (7-52); Albumin 2.9 g/dL (3.5-5.7); Albumin/Globulin Ratio 0.8 (1.1-2.2); Alkaline Phosphatase 87 Units/L (34-104); Aspartate Amino Transferase 32 Units/L (13-39); BUN/Creatinine Ratio 53 (6-26); Bilirubin,Total 0.6 mg/dL (0.3-1.0); Blood Urea Nitrogen 28 mg/dL (8-23); Carbon Dioxide 24 mEq/L (23-29); Chloride 103 mEq/L (98-107); Globulin 3.8 g/dL (2.4-3.5); Glucose 171 mg/dL (70-105); Osmolality,Calculated 292 (280-300); Potassium 3.8 mEq/L (3.5-5.1); Sodium 136 mEq/L (136-145); Total Protein 6.7 g/dL (6.4-8.9); eGFR For African Americans > 60 (> 60); eGFR For Non-African Americans > 60 (> 60)
[2021-05-21] MEDS: ALPRAZolam 1 MG TABLET PO SCH ×3 (10:37→19:32)
[2021-05-21] MEDS: Dexamethasone Sodium Phos/PF 10 MG/ML VIAL IVP SCH (10:37)
[2021-05-21 11:25] LABS: Basophils % 0.2 %; Hematocrit 34.4 % (35.3-44.9); Hemoglobin 11.1 g/dL (11.5-15.4); Immature Granulocytes % 0.7 % (0-4); Lymphocytes % 17.3 %; Mean Corpuscular HGB Conc 32.3 g/dL (31.6-35.5); Mean Platelet Volume 12.9 fL (9.4-12.4); Monocytes # 0.5 K/mcL (0.0-1.3); Monocytes % 7.8 %; Neutrophils # 4.3 K/mcL (1.6-8.9); Platelet Count 146 K/mcL (140-400); Red Cell Distribution Width 13.9 % (11.5-14.5)
[2021-05-21 11:26] LABS: White Blood Count 5.8 K/mcL (4.3-11.1)
[2021-05-21] MEDS: Ciprofloxacin/Dex *EAR* Susp 7.5 ML BOTTLE TP SCH ×2 (16:16→19:33)
[2021-05-22] MEDS: *HR* Enoxaparin 40 MG/0.4 ML SYRINGE SQ SCH (04:48)
[2021-05-22] MEDS: *HR* HYDROcodone/Acet 5/325 mg TABLET PO PRN ×2 (04:48→20:56)
[2021-05-22 06:41] LABS: Immature Granulocytes % 0.6 % (0-4); White Blood Count 6.5 K/mcL (4.3-11.1)
[2021-05-22 06:42] LABS: Hematocrit 32.4 % (35.3-44.9); Hemoglobin 10.2 g/dL (11.5-15.4); Immature Platelets 12.1 % (1.1-6.1); Lymphocytes % 15.1 %; Mean Corpuscular HGB Conc 31.5 g/dL (31.6-35.5); Mean Corpuscular Hemoglobin 29.9 pg (28.0-33.3); Mean Platelet Volume 13.2 fL (9.4-12.4); Monocytes # 0.7 K/mcL (0.0-1.3); Monocytes % 10.9 %; Neutrophils # 4.8 K/mcL (1.6-8.9); Platelet Count 124 K/mcL (140-400); Red Blood Count 3.41 M/mcL (3.82-4.97); Red Cell Distribution Width 13.8 % (11.5-14.5); Segmented Neutrophils % 73.4 %
[2021-05-22 07:15] LABS: Calcium 9.2 mg/dL (8.6-10.3); Potassium 4.5 mEq/L (3.5-5.1)
[2021-05-22] MEDS: Dexamethasone Sodium Phos/PF 10 MG/ML VIAL IVP SCH (08:40)
[2021-05-22] MEDS: ALPRAZolam 1 MG TABLET PO SCH ×3 (08:40→20:57)
[2021-05-22] MEDS: Ciprofloxacin/Dex *EAR* Susp 7.5 ML BOTTLE TP SCH ×3 (08:41→20:56)
[2021-05-22] MEDS ORDERED: Nitroglycerin 0.4 MG TAB.SUBL SL PRN (16:55)
[2021-05-23] MEDS: *HR* HYDROcodone/Acet 5/325 mg TABLET PO PRN ×2 (02:46→09:13)
[2021-05-23 05:48] LABS: Calcium 9.1 mg/dL (8.6-10.3); Potassium 5.6 mEq/L (3.5-5.1)
[2021-05-23] MEDS: *HR* Enoxaparin 40 MG/0.4 ML SYRINGE SQ SCH (06:23)
[2021-05-23] MEDS: Budesonide/Formoterol 160/4.5 1 PUFF INH IH SCH (08:34)
[2021-05-23] MEDS: Cyanocobalamin (B-12) 1,000 MCG TABLET PO SCH (09:13)
[2021-05-23] MEDS: Aspirin 81 MG TAB.CHEW PO SCH (09:13)
[2021-05-23] MEDS: Dexamethasone Sodium Phos/PF 10 MG/ML VIAL IVP SCH (09:13)
[2021-05-23] MEDS: ALPRAZolam 1 MG TABLET PO SCH ×3 (09:13→21:20)
[2021-05-23] MEDS: Ciprofloxacin/Dex *EAR* Susp 7.5 ML BOTTLE TP SCH ×3 (09:14→21:20)
[2021-05-23 16:46] LABS: Calcium 9.1 mg/dL (8.6-10.3)
[2021-05-23] MEDS: Acetaminophen 325 MG TABLET PO PRN (21:20)
[2021-05-24 03:31] LABS: Calcium 8.9 mg/dL (8.6-10.3); Potassium 4.7 mEq/L (3.5-5.1)
[2021-05-24] MEDS: *HR* Enoxaparin 40 MG/0.4 ML SYRINGE SQ SCH (06:00)
[2021-05-24] MEDS: Budesonide/Formoterol 160/4.5 1 PUFF INH IH SCH (08:04)
[2021-05-24] MEDS: ALPRAZolam 1 MG TABLET PO SCH ×3 (09:23→20:09)
[2021-05-24] MEDS: Cyanocobalamin (B-12) 1,000 MCG TABLET PO SCH (09:23)
[2021-05-24] MEDS: Aspirin 81 MG TAB.CHEW PO SCH (09:25)
[2021-05-24] MEDS: Dexamethasone Sodium Phos/PF 10 MG/ML VIAL IVP SCH (09:25)
[2021-05-24] MEDS: Ciprofloxacin/Dex *EAR* Susp 7.5 ML BOTTLE TP SCH ×3 (09:25→20:10)
[2021-05-24] MEDS: *HR* HYDROcodone/Acet 5/325 mg TABLET PO PRN (15:02)
[2021-05-25] MEDS: *HR* HYDROcodone/Acet 5/325 mg TABLET PO PRN ×2 (04:38→12:43)
[2021-05-25] MEDS: *HR* Enoxaparin 40 MG/0.4 ML SYRINGE SQ SCH (04:39)
[2021-05-25 06:51] LABS: Calcium 9.4 mg/dL (8.6-10.3); Potassium 4.8 mEq/L (3.5-5.1)
[2021-05-25] MEDS: Budesonide/Formoterol 160/4.5 1 PUFF INH IH SCH (08:10)
[2021-05-25] MEDS: Acetaminophen 325 MG TABLET PO PRN ×3 (08:23→23:17)
[2021-05-25] MEDS: Dexamethasone Sodium Phos/PF 10 MG/ML VIAL IVP SCH (08:23)
[2021-05-25] MEDS: Cyanocobalamin (B-12) 1,000 MCG TABLET PO SCH (08:24)
[2021-05-25] MEDS: Aspirin 81 MG TAB.CHEW PO SCH (08:24)
[2021-05-25] MEDS: Ciprofloxacin/Dex *EAR* Susp 7.5 ML BOTTLE TP SCH ×3 (08:41→21:03)
[2021-05-25] MEDS: ALPRAZolam 1 MG TABLET PO SCH ×4 (08:56→23:18)
[2021-05-25] MEDS ORDERED: *HR* HYDROcodone/Acet 5/325 mg TABLET PO ONE (09:15)
[2021-05-26] MEDS: *HR* Enoxaparin 40 MG/0.4 ML SYRINGE SQ SCH (05:24)
[2021-05-26] MEDS: Budesonide/Formoterol 160/4.5 1 PUFF INH IH SCH (08:26)
[2021-05-26] MEDS: ALPRAZolam 1 MG TABLET PO SCH ×3 (08:29→20:45)
[2021-05-26] MEDS: Aspirin 81 MG TAB.CHEW PO SCH (08:30)
[2021-05-26] MEDS: Ciprofloxacin/Dex *EAR* Susp 7.5 ML BOTTLE TP SCH ×3 (08:30→20:46)
[2021-05-26] MEDS: Dexamethasone Sodium Phos/PF 10 MG/ML VIAL IVP SCH (08:30)
[2021-05-26] MEDS: Cyanocobalamin (B-12) 1,000 MCG TABLET PO SCH (08:30)
[2021-05-26] MEDS: Acetaminophen 325 MG TABLET PO PRN (20:43)
[2021-05-27] MEDS ORDERED: Morphine Sulfate 2 MG/ML SYRINGE IVP ONE ×2 (03:38)
[2021-05-27] MEDS: Chloraseptic Spray 177 ML BOTTLE MM PRN (06:09)
[2021-05-27] MEDS: *HR* Enoxaparin 40 MG/0.4 ML SYRINGE SQ SCH (06:09)
[2021-05-27] MEDS: Budesonide/Formoterol 160/4.5 1 PUFF INH IH SCH (08:06)
[2021-05-27] MEDS: Cyanocobalamin (B-12) 1,000 MCG TABLET PO SCH (09:06)
[2021-05-27] MEDS: Aspirin 81 MG TAB.CHEW PO SCH (09:06)
[2021-05-27] MEDS: ALPRAZolam 1 MG TABLET PO SCH ×3 (09:06→22:00)
[2021-05-27] MEDS: Dexamethasone Sodium Phos/PF 10 MG/ML VIAL IVP SCH (09:06)
[2021-05-27] MEDS: Ciprofloxacin/Dex *EAR* Susp 7.5 ML BOTTLE TP SCH ×3 (09:26→22:00)
[2021-05-27] MEDS: Ipratropium/Albuterol Neb 3 ML IH PRN (13:35)
[2021-05-28] MEDS: *HR* HYDROcodone/Acet 5/325 mg TABLET PO PRN (04:35)
[2021-05-28] MEDS: *HR* Enoxaparin 40 MG/0.4 ML SYRINGE SQ SCH (04:35)
[2021-05-28] MEDS: Chloraseptic Spray 177 ML BOTTLE MM PRN (04:36)
[2021-05-28] MEDS: Ciprofloxacin/Dex *EAR* Susp 7.5 ML BOTTLE TP SCH ×3 (08:23→20:36)
[2021-05-28] MEDS: Dexamethasone Sodium Phos/PF 10 MG/ML VIAL IVP SCH (08:24)
[2021-05-28] MEDS: ALPRAZolam 1 MG TABLET PO SCH ×3 (08:24→20:36)
[2021-05-28] MEDS: Cyanocobalamin (B-12) 1,000 MCG TABLET PO SCH (08:24)
[2021-05-28] MEDS: Aspirin 81 MG TAB.CHEW PO SCH (08:24)
[2021-05-28] MEDS: Budesonide/Formoterol 160/4.5 1 PUFF INH IH SCH (08:29)
[2021-05-28] MEDS: Ipratropium/Albuterol Neb 3 ML IH PRN (11:36)
[2021-05-28 19:29] VITALS: BP 117/51; PULSE 65; TEMP 98.3; O2SAT 98
== END 2021-05-28 21:07 | disposition home health service (06) | DRG 137 ==
LOC: 3NENU 14:14 → EMEROOARM 14:14 → SUATTDRO 18:44 → 3NENU 20:00 → SUATTDRO 05-14 17:38
PROVIDERS: ADMIT Pharmacist; ATTEND Hospitalist